=== PATIENT | male | born 1945 | race Caucasian/White ===

== ENCOUNTER 2024-08-07 18:03 | Emergency (ER) | payer MEDICARE, SELFPAY ==
[2024-08-07 18:04] VITALS: BP 133/96; PULSE 125; RESP 18; TEMP 37.1; O2SAT 97; BMI 24.5
--- NOTE | 2024-08-07 18:22 | CT_ITS ---
PROCEDURE: SPINE CERVICAL WITHOUT CONTRAS 08/07/2024 REASON FOR EXAM: FALL TECHNIQUE: Cervical spine CT without contrast. Coronal and Sagittal reconstruction series were provided. One or more dose reduction techniques were used (e.g., Automated exposure control, adjustment of the mA and/or kV according to patient size, use of iterative reconstruction technique COMPARISON: None FINDINGS: Alignment: Straightening of the cervical lordosis. Atlantoaxial interval is maintained. Vertebrae: Vertebral body heights are maintained. Multilevel loss of disc space throughout the cervical spine. No acute fracture or traumatic subluxation. Multilevel degenerative changes, most prominent at C3-C4 with up to moderate canal stenosis and severe neural foraminal narrowing. Soft Tissues: No focal soft tissue abnormality. Other: Severe emphysema within the imaged lung apices. CT/Spine Cervical without Contras IMPRESSION: No acute fracture or traumatic subluxation. Multilevel degenerative changes most prominent at C3-C4. Reading Location: [facility]
--- NOTE | 2024-08-07 18:22 | CT_ITS ---
PROCEDURE: CHEST WITHOUT CONTRAST 08/07/2024 REASON FOR EXAM: FALL TECHNIQUE: Chest CT without contrast. Coronal and Sagittal reconstruction series were provided. One or more dose reduction techniques were used (e.g., Automated exposure control, adjustment of the mA and/or kV according to patient size, use of iterative reconstruction technique COMPARISON: None FINDINGS: Hardware: Right shoulder arthroplasty. Lymph nodes: No suspicious adenopathy. Heart and Vasculature: No cardiomegaly. Severe coronary artery calcifications. No pericardial effusion. Atherosclerotic calcifications of the thoracic aorta. Thoracic aorta and pulmonary arteries have normal contours; noncontrast technique limits evaluation. Coronary Artery Calcifications: Present Lungs and Airways: Central airways are patent without endobronchial lesions. Moderate upper lobe predominant centrilobular emphysema. 4 mm right upper lobe nodule (series 10, image 20). Otherwise, no suspicious pulmonary nodules. No focal consolidation. No pneumothorax. No pleural effusion. Patchy opacities in the lung base, compatible with atelectasis. Left upper lobe calcified granuloma. Upper Abdomen: Multiple bilateral renal cysts. Small hiatal hernia. Bones: Multiple remote bilateral rib fractures. No acute osseous abnormality. Diffuse osteopenia. CT/Chest without Contrast IMPRESSION: No acute findings in the thorax. Moderate upper lobe centrilobular emphysema. 4 mm indeterminate right upper lobe pulmonary nodule. [facility]
--- NOTE | 2024-08-07 18:22 | RAD_ITS ---
PROCEDURE: LUMBAR SPINE 2 OR 3 VIEWS; PELVIS 1 OR 2 VIEWS 08/07/2024 REASON FOR EXAM: FALLL; FALL TECHNIQUE: 2 view(s) of the lumbar spine COMPARISON: None FINDINGS: Straightening of the lumbar lordosis. Mild remote compression deformities T12- L2 vertebral bodies. Multilevel loss of disc spaces. Pedicles are intact. Osseous architecture is maintained. Moderate- severe multilevel degenerative changes throughout the lumbar spine. No acute fracture or traumatic subluxation. SI joints are unremarkable. No suspicious lytic or blastic lesion. Moderate degenerative changes of the hip joints. Dense atherosclerotic calcification of the abdominal aorta and suggestion of a 5.1 cm aneurysmal dilation infrarenal aorta RAD/Pelvis 1 or 2 Views IMPRESSION: No acute fracture or dislocation. [id number] degenerative changes as described above. 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 Recommend CT of the abdomen and pelvis for further evaluation. Reading Location: [facility]
--- NOTE | 2024-08-07 18:24 | EDS_ITS ---
HPI HPI - Fall History of Present Illness Chief Complaint: Fall Detail of Chief Complaint: Fall Informant: patient Narrative Narrative: Patient presents to the emergency department after a fall that was unwitnessed at memory care unit at [facility]. Patient very poor historian due to history of dementia. He has history of chronic back pain. Complains of some discomfort of pain in his right upper back. Patient not anticoagulated [facility] Medical History (Updated 08/07/24 @ 21:[address] Bert Correa, DO) Barretts esophagus GERD (gastroesophageal reflux disease) Embolism and thrombosis HTN (hypertension) Alzheimer disease Dementia Hyperlipidemia Allergy/AdvReac Type Severity Reaction Status Date / Time bacitracin (From Neosporin Allergy Unknown unknown Verified 08/07/24 18:09 ([id number])) Latex, Natural Rubber Allergy Unknown unknown Verified 08/07/24 18:09 neomycin (From Neosporin Allergy Unknown unknown Verified 08/07/24 18:09 ([id number])) polymyxin B (From Neosporin Allergy Unknown unknown Verified 08/07/24 18:09 ([id number])) sulfamethoxazole (From Allergy Unknown unknown Verified 08/07/24 18:09 Bactrim) trimethoprim (From Bactrim) Allergy Unknown unknown Verified 08/07/24 18:09 Social History Smoking Status: Unknown if ever smoked ROS ROS ED ROS Narrative Difficult to obtain due to mental status however he will answer yes and no questions. Review of Systems ROS Unobtainable: due to mental status and other Constitutional Constitutional ED: Reports lethargy; Denies chills, fever(s), sweats or weight loss Eyes Eyes: Denies blurry vision, change in vision or diplopia ENT ENT ED: Denies rhinorrhea or sore throat Cardiovascular Cardiovascular: Reports racing heartbeat; Denies chest pain or orthopnea Respiratory/Chest Respiratory/Chest: Denies cough, dyspnea, dyspnea on exertion, orthopnea or sputum Gastrointestinal Gastrointestinal: Denies abdominal pain, diarrhea, nausea or vomiting Genitourinary Genitourinary ED: Denies dysuria, hematuria or urinary frequency Musculoskeletal Musculoskeletal: Reports back pain; Denies arthralgias, myalgias or neck pain Integumentary Denies abscess, Abrasions or rash Neurologic Neurologic: Denies headache(s) or weakness Psychiatric Psychiatric: Denies anxiety, depression or suicidal thoughts Endocrine Endocrinology: Denies polydipsia, polyphagia or polyuria Hematologic/Lymphatic Hematologic/Lymphatic: Denies easy bleeding, easy bruising or lymphadenopathy Allergic/Immunologic Allergic/Immunologic ED: Denies mouth swelling, tongue swelling or urticaria EXAM Physical Exam Const Vital Signs: 08/07/24 18:04 08/07/24 20:23 08/07/24 20:26 Temperature 98.8 F Temperature Source Oral Pulse Rate 125 H 100 Respiratory Rate 18 19 H Respiratory Effort Normal Non-Labored Respiratory Depth Normal Respiratory Pattern Normal Blood Pressure 133/96 H 130/92 H Blood Pressure Mean 108 104 Pulse Ox 97 96 Oxygen Delivery Method Room Air Room Air Room Air 08/07/24 21:41 Temperature 98.8 F Temperature Source Pulse Rate 98 Respiratory Rate 16 Respiratory Effort Respiratory Depth Respiratory Pattern Blood Pressure 136/89 H Blood Pressure Mean 104 Pulse Ox 96 Oxygen Delivery Method Positive well nourished and well developed General Appearance ED: well developed and NAD HEENT Reports TM's clear and moist mucous membranes HEENT Narrative: No external evidence of trauma to his head. normocephalic and atraumatic; Negative for trauma or tenderness Tympanic Membrane ED: Yes TM's clear Eyes PERRL and EOMs intact bilaterally General Eye ED: Negative for pale conjunctiva or scleral icterus Neck no lymphadenopathy, supple and no JVD General: Negative for tenderness Chest Wall inspection of chest normal and palpation of chest normal Chest: Negative for tenderness Resp normal respiratory effort and clear to auscultation bilaterally Effort and Inspection: Negative for respiratory distress or pain with movement Auscultation: Negative for rhonchi, wheezes or diminished lung sounds Cardio regular rate, regular rhythm, S1 normal heart sound, S2 normal heart sound and no murmurs Peripheral Pulses: pulses 2+ throughout GI normal to inspection, nondistended, normoactive bowel sounds, soft to palpation, non-tender, non-distended and no masses Back/Spine no CVA tenderness and no thoracic nor lumbar tenderness Back/Spine Narrative: Mild diffuse tenderness over thoracic spine and right posterior ribs. No significant tenderness over the lumbar spine. No ecchymosis or bruising noted. Extremity normal to inspection General Extremety ED: Negative for edema General Extremity: Negative for edema Neuro oriented x3, CN's II-XII intact bilaterally, no sensory deficits noted and gait normal Sensorium / Orientation: awake, alert, oriented to person, oriented to place and oriented to time Motor Exam: strength 5/5 throughout and strength abnormal Psych mental status grossly normal Skin no rashes or lesions noted and no wounds MDM MDM MDM Narrative Medical decision making narrative: Patient presents to the emergency department after an acute fall. Very poor historian given history of dementia. Apparently does have history of some chronic back pain. Patient had a CT scan of the brain without contrast that showed no acute intracranial injury. He had a CT of the cervical spine that showed degenerative changes without acute fracture. Patient had x-rays of the lumbar spine that showed degenerative changes without fracture. Patient also had x-ray of the pelvis which did not show fractures however did show concern for 5.1 cm infrarenal aortic aneurysm and recommended obtaining CT scan of the abdomen pelvis. I did obtain a CT scan of the chest initially that did not show any rib fractures or thoracic vertebral fractures. CT scan of the abdomen pelvis with IV contrast obtained showed a infrarenal aneurysm measuring 4.4 cm. No evidence for dissection or rupture. At this point we [facility] will refer to vascular surgery for follow-up regarding the aneurysm as I do not feel this needs emergent attention. Lab Data Attestation: I reviewed the patient's lab results. Labs: Laboratory Results - last 24 hr 08/07/24 20:20 WBC 9.0 RBC 4.27 L Hgb 13.1 Hct 38.8 L MCV 90.9 MCH 30.7 MCHC 33.8 RDW Std Deviation 44.4 H RDW Coeff of Chary 13.5 Plt Count 222 MPV 8.8 Immature Gran % (Auto) 0.800 Neut % (Auto) 60.2 Lymph % (Auto) 22.4 [place] % (Auto) 10.8 H Eos % (Auto) 5.5 H Baso % (Auto) 0.3 Absolute Neuts (auto) 5.4 Absolute Lymphs (auto) 2.01 Nucleated RBC % 0 Sodium 142 Potassium 4.2 Chloride 109 H Carbon Dioxide 19.7 L Anion Gap 13 BUN 39 H Creatinine 1.75 H Estim Creat Clear Calc 36.45 L Est GFR (MDRD) Non-Af 39 L BUN/Creatinine Ratio 22.3 H Glucose 118 H Calcium 9.4 Radiography Diagnostic Testing: Clinical Impression(s) from Imaging Studies Cervical Spine CT 08/07/24 18:22 IMPRESSION: No acute fracture or traumatic subluxation. Multilevel degenerative changes most prominent at C3-C4. Reading Location: [facility] Chest CT 08/07/24 18:22 IMPRESSION: No acute findings in the thorax. Moderate upper lobe centrilobular emphysema. 4 mm indeterminate right upper lobe pulmonary nodule. Reading Location: [facility] Pelvis X-Ray 08/07/24 18:22 IMPRESSION: No acute fracture or dislocation. Enhkxfcx-rt-bgnhik degenerative changes as described above. 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 Recommend CT of the abdomen and pelvis for further evaluation. Reading Location: [facility] Brain CT 08/07/24 18:30 IMPRESSION: No acute intracranial abnormality. Chronic microvascular ischemia and involutional changes. Reading Location: [facility] Lumbar Spine X-Ray 08/07/24 18:40 IMPRESSION: No acute fracture or dislocation. Izqveyjz-bv-chbobn degenerative changes as described above. 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 Recommend CT of the abdomen and pelvis for further evaluation. Reading Location: [facility] Abdomen/Pelvis CTA 08/07/24 19:55 IMPRESSION: 1. Fusiform aneurysm at the bifurcation, measurements documented above. 2. Diffuse atherosclerotic calcifications involving the visceral arteries and aorta, mild in the visceral arteries and moderate in the aorta. 3. Bilateral renal cysts. 4. Bilateral nonobstructing nephrolithiasis. 5. Diverticulosis without signs of diverticulitis 6. Fat containing left inguinal hernia. 7. Centrilobular emphysematous changes. 8. Coronary artery calcifications. Reading [facility] x-ray of the pelvis obtained interpreted by myself as no evidence of fractures and noted degenerative changes. Radiology in agreement with a noted concern for 5.1 cm aneurysmal dilatation infrarenal aorta and recommended CT of the abdomen and pelvis for further evaluation. Three-view x-rays of the lumbar spine obtained interpreted by myself as degenerative changes without evidence of fracture. Radiology in agreement but again noted aneurysmal dilatation of aorta recommended CT imaging. Discharge Plan Triage Chief Complaint: Fall ED Provider: Bert Correa Dx/Rx/DC Orders Clinical Impression: Fall, Dementia, AAA (abdominal aortic aneurysm) Instructions: Delirium and Dementia, ED Fall Prevention, ED AAA Stable Primary Care Provider: Ladarius Painting Referrals: Trav Dacosta MD [Med Staff - Active Staff] - 5-7 Days Ladarius Painting DO [Primary Care Provider] - 3-5 Days Print Language: Maltese Disposition Disposition: Home, Self Care
--- NOTE | 2024-08-07 18:30 | CT_ITS ---
PROCEDURE: BRAIN/HEAD WITHOUT CONTRAST 08/07/2024 REASON FOR EXAM: FALL, DEMENTIA TECHNIQUE: Head CT without intravenous contrast. Coronal and Sagittal reconstruction series were provided. One or more dose reduction techniques were used (e.g., Automated exposure control, adjustment of the mA and/or kV according to patient size, use of iterative reconstruction technique. COMPARISON: None FINDINGS: No acute intracranial hemorrhage, mass, mass effect, midline shift or pathologic extra-axial fluid collection. Mild parenchymal atrophy with commensurate increase in CSF containing spaces. Patchy white matter hypodensities, patient demographics favor chronic microvascular ischemic changes. Paranasal sinuses and mastoid air cells are clear. The calvarium is grossly intact. CT/Brain/Head without Contrast IMPRESSION: No acute intracranial abnormality. Chronic microvascular ischemia and involutional changes. [facility]
--- NOTE | 2024-08-07 18:40 | RAD_ITS ---
PROCEDURE: LUMBAR SPINE 2 OR 3 VIEWS; PELVIS 1 OR 2 VIEWS 08/07/2024 REASON FOR EXAM: FALLL; FALL TECHNIQUE: 2 view(s) of the lumbar spine COMPARISON: None FINDINGS: Straightening of the lumbar lordosis. Mild remote compression deformities T12- L2 vertebral bodies. Multilevel loss of disc spaces. Pedicles are intact. Osseous architecture is maintained. Moderate- severe multilevel degenerative changes throughout the lumbar spine. No acute fracture or traumatic subluxation. SI joints are unremarkable. No suspicious lytic or blastic lesion. Moderate degenerative changes of the hip joints. Dense atherosclerotic calcification of the abdominal aorta and suggestion of a 5.1 cm aneurysmal dilation infrarenal aorta RAD/Lumbar Spine 2 or 3 Views IMPRESSION: No acute fracture or dislocation. Zckhscmg-[id number] degenerative changes as described above. 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 Recommend CT of the abdomen and pelvis for further evaluation. Reading Location: [facility]
--- NOTE | 2024-08-07 19:55 | CT_ITS ---
PROCEDURE: CTA ABDOMEN/PELVIS WITH IV CONTRAST 08/07/2024 REASON FOR EXAM: AAA AND BACK PAIN TECHNIQUE: CTA imaging of the abdomen and pelvis with intravenous contrast. Contiguous axial scans of 2.5 mm slice thicknesses. Sagittal and coronal reconstruction images were obtained. One or more dose reduction techniques were used (e.g., automated exposure control, adjustment of mA and/or kv according to patient size, use of iterative reconstruction technique). CONTRAST: ISOVUE 370 VOLUME: 100 ML RADIATION DOSE SUMMARY: DLP: 1186.03 MGycm COMPARISON: NO RELEVANT PRIOR FINDINGS: Aorta: [id number] atherosclerotic calcific disease. Fusiform aneurysmal dilatation of the aorta at the bifurcation measuring 4.4 x 3.9 cm. Eccentric thrombus is noted. Functional lumen size measures 3.1 x 2.4 cm. No evidence of dissection. Iliac Arteries: No aneurysms. Atherosclerotic calcifications. Mild tortuosity. Celiac: No critical stenoses. Mild atherosclerotic calcifications. SMA: No critical stenoses. Mild atherosclerotic calcifications. LINA : Not visualized. Right Renal: No critical stenoses. Mild atheromatous calcification. Left Renal: No critical stenosis. Mild atheromatous calcific disease. Other Findings: Bilateral renal cysts, largest in the superior pole of the left kidney measuring 3.5 x 3.2 cm. Bilateral nonobstructing nephrolithiasis. Colonic diverticulosis, descending and sigmoid colon without signs of diverticulitis. Fat containing left inguinal hernia. Multilevel spondylosis. Centrilobular emphysematous changes. Coronary artery calcifications. CT/CTA Abd/Pelvis W/WO Contrast IMPRESSION: 1. Fusiform aneurysm at the bifurcation, measurements documented above. 2. Diffuse atherosclerotic calcifications involving the visceral arteries and aorta, mild in the visceral arteries and moderate in the aorta. 3. Bilateral renal cysts. 4. Bilateral nonobstructing nephrolithiasis. 5. Diverticulosis without signs of diverticulitis 6. Fat containing left inguinal hernia. 7. Centrilobular emphysematous changes. 8. Coronary artery calcifications. Reading Location: [facility]
[2024-08-07 20:23] VITALS: BP 130/92; PULSE 100; RESP 19; O2SAT 96
[2024-08-07 20:32] LABS: Absolute Lymphocyte Count 2.01 X10^3/uL (0.83-4.51); Absolute Neutrophil Count 5.4 X10^3/uL (2.0-7.7); Basophil# 0.03 X10^3/uL; Basophil% 0.3 % (0-1); Eosinophil# 0.49 X10^3/uL; Eosinophils% 5.5 % (0-5); Hematocrit 38.8 % (40-54); Hemoglobin 13.1 g/dL (13.0-16.5); Lymphocyte # 2.01 X10^3/ul (0.83-4.51); Lymphocyte % 22.4 % (19-41); Mean Corp Hgb Conc 33.8 g/dL (32-36); Mean Corpuscular Hgb 30.7 pg (27.0-32.0); Mean Corpuscular Volume 90.9 fL (80-94); Mean Platelet Vol. 8.8 fl (6.2-12.0); Monocyte# 0.97 X10^3/uL; Monocyte% 10.8 % (0-10); NRBC Flagged by Analyzer 0 % (0-5); Neutrophil # 5.42 X10^3/uL (2.7-7.7); Neutrophil % 60.2 % (47-70); Platelet Count 222 K/mm3 (150-450); RBC Distribution Width CV 13.5 % (11.6-14.6); RBC Distribution Width SD 44.4 fl (35.1-43.9); Red Blood Count 4.27 M/mm3 (4.6-6.2)
[2024-08-07 21:00] LABS: Anion Gap 13 (5-15); BUN 39 mg/dL (4-19); BUN/Creat Ratio 22.3 RATIO (10-20); Calcium,Total 9.4 mg/dL (7.6-11.0); Carbon Dioxide 19.7 mmol/L (21.0-32.0); Chloride 109 mmol/L (98-108); Creatinine, Serum 1.75 mg/dL (0.70-1.20); EST Glomerular Filtration Rate 39 (>60); Estimated Creatinine Clearance 36.45 ml/min (50-250); Glucose 118 mg/dL (70-99); Potassium 4.2 mmol/L (3.3-5.1); Sodium Level 142 mmol/L (133-145)
--- NOTE | 2024-08-07 21:25 | ED.RN ---
spoke with Zoe at [facility]osp[facility] to inform of pt's planned discharge to [facility].
[2024-08-07 21:41] VITALS: BP 136/89; PULSE 98; RESP 16; TEMP 37.1; O2SAT 96
--- NOTE | 2024-08-07 21:43 | ED.RN ---
called nurse at [facility] to inform of pt's return
--- NOTE | 2024-08-07 21:49 | ED.RN ---
Call to [facility] to arrange transport back to [facility]. 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
--- NOTE | 2024-08-07 22:06 | ED.RN ---
Uziel Wilkes updated on findings and plan to discharge pt back to [facility]. All questions answered, she will update pt's .
[2024-08-07 23:54] VITALS: PULSE 111; RESP 19; O2SAT 96
[2024-08-08 02:04] VITALS: BP 125/89; PULSE 78; RESP 17; O2SAT 95
[2024-08-08 04:00] VITALS: PULSE 81; RESP 16; O2SAT 95
== END 2024-08-08 04:53 | disposition home or self-care (01) ==
PROVIDERS: Emergency Provider Emergency Medicine; Referring Provider Emergency Medicine; Visit Provider Emergency Medicine
DX: I71.40 Abdominal aortic aneurysm, without rupture, unspecified (principal); F02.80 Dementia in other diseases classified elsewhere, unspecified severity, without behavioral disturbance, psychotic disturbance, mood disturbance, and anxiety; G30.9 Alzheimer's disease, unspecified; W19.XXXA Unspecified fall, initial encounter
CPT/HCPCS: 70450; 71250; 72100; 72125; 72170; 74174; 80048; 85025; 99285; Q9967; A4216

== ENCOUNTER 2024-10-06 17:19 | Emergency (ER) | payer MEDICARE, SELFPAY ==
[2024-10-06] VITALS (15 sets, daily range): BP systolic 79–151; BP diastolic 55–78; PULSE 100–147; RESP 15–29; TEMP 36.1–36.9; O2SAT 95–100; BMI 22.9
--- NOTE | 2024-10-06 17:23 | EKG12_ITS ---
Test Reason : POST CHOKING Blood Pressure : */* mmHG Vent. Rate : 125 BPM Atrial Rate : * BPM P-R Int : * ms QRS Dur : 84 ms QT Int : 334 ms P-R-T Axes : * 65 267 degrees QTcB Int : 482 ms Atrial fibrillation with rapid ventricular response ST & T wave abnormality, consider inferolateral ischemia Abnormal ECG Confirmed by STEVE WILL, MARTHA ([id number]), production editor MINDA GARCIA ([id number]) on 10/08/2024 8:19:41 AM Referred By: [facility] Confirmed By: MARTHA WILSON MD
--- NOTE | 2024-10-06 17:23 | EKG12_ITS ---
Test Reason : POST CHOKING Blood Pressure : */* mmHG Vent. Rate : 125 BPM Atrial Rate : * BPM P-R Int : * ms QRS Dur : 84 ms QT Int : 334 ms P-R-T Axes : * 65 267 degrees QTcB Int : 482 ms Atrial fibrillation with rapid ventricular response ST & T wave abnormality, consider inferolateral ischemia Abnormal ECG Confirmed by STEVE WILL, MARTHA ([id number]), medical editor MINDA GARCIA ([id number]) on 10/08/2024 8:19:41 AM Referred By: [facility] Confirmed By: MARTHA WILSON MD
--- NOTE | 2024-10-06 17:28 | ED.RN ---
dr junior at bedside prepareing for bedside bronch
--- NOTE | 2024-10-06 17:28 | ED.RN ---
dr junior at bedside prepareing for bedside bronch
--- NOTE | 2024-10-06 17:33 | ED.RN ---
dr. junior removed 2 separate pieces of steak from airway
--- NOTE | 2024-10-06 17:33 | ED.RN ---
dr. junior removed 2 separate pieces of steak from airway
[2024-10-06 17:35] LABS: Hematocrit 38.8 % (40-54); Hemoglobin 12.3 g/dL (13.0-16.5); Immature Granulocytes Count 0.050 X10^3/uL (0.0-0.0); Mean Corp Hgb Conc 31.7 g/dL (32-36); Mean Corpuscular Volume 97.2 fL (80-94); Mean Platelet Vol. 8.8 fl (6.2-12.0); NRBC Flagged by Analyzer 0 % (0-5); Platelet Count 268 K/mm3 (150-450); RBC Distribution Width CV 14.3 % (11.6-14.6); RBC Distribution Width SD 51.6 fl (35.1-43.9); Red Blood Count 3.99 M/mm3 (4.6-6.2); White Blood Count 13.9 K/mm3 (4.4-11.0)
--- NOTE | 2024-10-06 17:40 | EDS_ITS ---
HPI History of Present Illness Chief Complaint: Foreign Body Detail of Chief Complaint: Respiratory distress due to food foreign body airway Informant: EMS Onset/Context/Timing Onset: Today and Hours Context: Sudden Onset Timing: Continuous Quality: Patient apparently choked on steak Location: Upper airway Mechanism/Context: Yes other Current Severity: Moderate Maximum Severity: Severe Worsened by: Obstruction airway due to food bolus, steak Relieved by: Partially relieved with Heimlich Associated Symptoms Length of loss of consciousness: Unable to determine Narrative Narrative: Patient is an elderly male. He is presently nonverbal. He has history of dementia. Squad states they were called. He was 94% on nonrebreather. He was cyanotic. Heimlich was performed with piece of steak coming up. When he arrived he remained unresponsive. He has stridor noted on inspiration. He is in respiratory distress. He is saturating 95% on nonrebreather mask. Patient has diminished breath sounds bilaterally. No other history is obtainable Prior similar symptoms: No Recent Illness/Hospitalization: No [facility] Medical History (Updated 10/06/24 @ 18:[address] Eric Junior MD) Barretts esophagus GERD (gastroesophageal reflux disease) Embolism and thrombosis HTN (hypertension) Alzheimer disease Dementia Hyperlipidemia Allergy/AdvReac Type Severity Reaction Status Date / Time bacitracin (From Neosporin Allergy Unknown unknown Verified 08/07/24 18:09 ([id number])) Latex, Natural Rubber Allergy Unknown unknown Verified 08/07/24 18:09 neomycin (From Neosporin Allergy Unknown unknown Verified 08/07/24 18:09 ([id number])) polymyxin B (From Neosporin Allergy Unknown unknown Verified 08/07/24 18:09 ([id number])) sulfamethoxazole (From Allergy Unknown unknown Verified 08/07/24 18:09 Bactrim) trimethoprim (From Bactrim) Allergy Unknown unknown Verified 08/07/24 18:09 Social History Smoking Status: Unknown if ever smoked ROS ROS ED Review of Systems ROS Unobtainable: due to mental status EXAM Physical Exam Const Vital Signs: 10/06/24 17:20 10/06/24 17:23 10/06/24 17:28 Temperature 98.4 F Temperature Source Temporal Pulse Rate 147 H 124 H Respiratory Rate 29 H Respiratory Effort Short of Breath Respiratory Depth Blood Pressure 151/74 H 81/55 L Blood Pressure Mean 99 63 Pulse Ox 95 97 Oxygen Delivery Method Non-Rebreather Nasal Cannula Oxygen Flow Rate (L/min) 15 10 10/06/24 17:31 10/06/24 17:33 10/06/24 17:35 Temperature Temperature Source Pulse Rate 127 H 129 H 131 H Respiratory Rate 25 H Respiratory Effort Respiratory Depth Blood Pressure 79/60 L 91/63 Blood Pressure Mean 66 72 Pulse Ox 96 96 Oxygen Delivery Method Nasal Cannula Oxygen Flow Rate (L/min) 10 10/06/24 17:40 10/06/24 17:45 10/06/24 17:49 Temperature Temperature Source Pulse Rate 125 H 123 H Respiratory Rate 23 H 24 H 22 H Respiratory Effort Normal Non-Labored Respiratory Depth Normal Blood Pressure 100/61 104/78 Blood Pressure Mean 74 86 Pulse Ox 98 97 97 Oxygen Delivery Method Non-Rebreather Nasal Cannula Nasal Cannula Oxygen Flow Rate (L/min) 15 10 10/06/24 18:03 10/06/24 18:22 10/06/24 19:52 Temperature 97.5 F L 97.0 F L Temperature Source Temporal Temporal Pulse Rate 121 H 126 H 101 H Respiratory Rate 24 H 19 H 17 Respiratory Effort Respiratory Depth Blood Pressure 102/56 L 93/66 92/58 L Blood Pressure Mean 71 75 69 Pulse Ox 98 95 99 Oxygen Delivery Method Nasal Cannula Nasal Cannula Nasal Cannula Oxygen Flow Rate (L/min) 5 5 Vital signs noted. He is presently on 5 L by nasal cannula. Positive well nourished and well developed Constitutional Narrative: Patient in obvious respiratory distress with stridor, use of accessory muscles and retractions. General Appearance ED: well developed; Negative for NAD or pallor HEENT normocephalic and atraumatic; Negative for cyanosis of lips/distal nose Eyes PERRL and EOMs intact bilaterally General Eye ED: Negative for pale conjunctiva or scleral icterus Neck full ROM, no lymphadenopathy, supple and no JVD Neck Narrative: Stridor as previously documented. Resp Resp Narrative: Use of accessory muscles and retractions. Audible abnormal respiratory sounds noted as well. Cardio no murmurs Cardio Narrative: Difficult to hear heart tones due to abnormal respiratory sounds. Rate: tachycardic Rhythm: abnormal rhythm irregularly irregular GI non-tender, non-distended and no masses Palpation: soft Back/Spine no CVA tenderness Extremity Extremity Narrative: There is no clubbing or cyanosis. Capillary refill is normal. Neuro No oriented x3 Neuro Narrative: There is no verbal response to tactile or verbal stimulus. Psych Psych Narrative: Unable to assess Skin General Skin Exam: Negative for jaundice or pallor Lesions: no lesions Rashes: no rashes MDM MDM MDM Narrative Medical decision making narrative: Patient respiratory distress. Suspect he has retained food in his upper airway. Patient was placed on high percent nonrebreather. Patient received 20 mg of etomidate. Using glide scope and Tiffanie forceps 3 large pieces of unchewed steak were removed. Patient then underwent direct laryngoscopy with glide scope and fiberoptic bronchoscopy. There was no obvious foreign body noted. Did not visualize the entire trachea due to secretions. Suspect he aspirated. To perform initial procedure 20 mg vomiting it was administered. Additional 20 mg of etomidate was administered to perform fiberoptic bronchoscopy. Lab Data Attestation: I reviewed the patient's lab results. Lab results narrative: White count is elevated 13.9 thousand. There is no shift. Electrolyte panel Veals a high anion gap acidosis. ABG reveals a metabolic acidosis with increased AA gradient. BUN and creatinine are elevated at 35 and 1.74. Estimated GFR is 39. Lactate is elevated 4.2. Labs: Laboratory Results - last 24 hr 10/06/24 10/06/24 17:23 17:50 WBC 13.9 H RBC 3.99 L Hgb 12.3 L Hct 38.8 L MCV 97.2 H MCH 30.8 MCHC 31.7 L RDW Std Deviation 51.6 H RDW Coeff of Chary 14.3 Plt Count 268 MPV 8.8 Immature Gran % (Auto) 0.400 Neut % (Auto) 48.1 Lymph % (Auto) 34.4 [place] % (Auto) 10.7 H Eos % (Auto) 6.1 H Baso % (Auto) 0.3 Absolute Neuts (auto) 6.7 Absolute Lymphs (auto) 4.77 H Nucleated RBC % 0 Sodium 142 Potassium 3.7 Chloride 107 Carbon Dioxide 17.2 L Anion Gap 17 H BUN 35 H Creatinine 1.74 H Estim Creat Clear Calc 36.32 L Est GFR (MDRD) Non-Af 39 L BUN/Creatinine Ratio 19.9 Glucose 198 H Lactic Acid 4.2 H* Calcium 9.4 Troponin T High Sens 35 H ABG Data Attestation: I personally reviewed and interpreted this ABG as follows: Interpretation: Patient is acidotic with a pH of 7.17. Bicarb is 18.2. CO2 is slightly elevated at 50. pO2 was 229. This was on a nonrebreather mask. ABG is consistent with a metabolic acidosis and mild respiratory acidosis with an increased AA gradient and mild CO2 retention. ABG results: ABG 10/06/24 17:50 Specimen Type ART Sample Site R Radial pH 7.17 L* Bicarbonate Actual 18.2 L Total CO2 20 Base Excess -10 L O2 Saturation 100 H O2 % 15.0 ABG pCO2 50.0 H ABG pO2 229 H Devendra Test Positive O2 Delivery Device HFNC Vent Mode Not entered Crit Call To/Read Back Yes Blood Gas Notified Whom junior Blood Gas Notified Time 17:52:24 Radiography Chest X-Ray - ED: 1 View and Read by ED Physician (Suboptimal film due to rotation and body position. Cardiac silhouette size appears normal. Hilum appears normal. Osseous structures are unremarkable.) Diagnostic Testing: Clinical Impression(s) from Imaging Studies Chest X-Ray 10/06/24 17:45 IMPRESSION: No acute process in the chest. No noticeable change from prior. Reading [facility] Rhythm Strip Rhythm Strip: A-fib Rate: 134 EKG Initial EKG: Attestation: I personally reviewed and interpreted this EKG as follows: Interpretation: Atrial Fibrillation (Rate is 125. There is ST-T wave changes noted in the inferolateral leads. Will need to obtain old EKG for comparison. QRS duration 84 ms. QT duration 234 ms. [place] is normal.) Treatment and Re-Evaluation Narrative: Nurses informing that he is DNR comfort care. We were able to locate order sheet that was signed by Dr. Swain. He is DNR comfort care only. In light of this if [facility] of treating him with oxygen will send back to nursing facility on oxygen and Augmentin for presumed aspiration. Nurse informing that hospice like care is sending a nursing to evaluate him. Patient is DNR comfort care only. Hospice from [facility] care nurse has evaluated patient. She spoke to family. He will be an inpatient hospice patient before returning to the nursing facility. Critical Care Time Critical Care Time: Yes Critical care time (excluding procedures): 30-74 minutes (32), Including time spent: (History, physical, documentation, independent rotation laboratory results.), Discussing w/Consultants, Arranging Admission or Transfer and Performing Direct Patient Care at Bedside (Time did not include time allotted for sedation, direct laryngoscopy with removal of 3 pieces of steak and bronchoscopy.) Discharge Plan Triage Chief Complaint: Foreign Body ED Provider: Eric Junior Dx/Rx/DC Orders Clinical Impression: Acute respiratory distress, Aspiration of food, Acidosis, lactic, Acute on chronic respiratory failure with hypoxia and hypercapnia, Atrial fibrillation with RVR, Leukocytosis, Anemia, macrocytic, CKD stage 3 secondary to diabetes, Acute hyperglycemia Primary Care Provider: Ladarius Painting Referrals: Ladarius Painting DO [Primary Care Provider] - Print Language: Swiss Disposition Disposition: Hospice in Home
--- NOTE | 2024-10-06 17:40 | EDS_ITS ---
HPI History of Present Illness Chief Complaint: Foreign Body Detail of Chief Complaint: Respiratory distress due to food foreign body airway Informant: EMS Onset/Context/Timing Onset: Today and Hours Context: Sudden Onset Timing: Continuous Quality: Patient apparently choked on steak Location: Upper airway Mechanism/Context: Yes other Current Severity: Moderate Maximum Severity: Severe Worsened by: Obstruction airway due to food bolus, steak Relieved by: Partially relieved with Heimlich Associated Symptoms Length of loss of consciousness: Unable to determine Narrative Narrative: Patient is an elderly male. He is presently nonverbal. He has history of dementia. Squad states they were called. He was 94% on nonrebreather. He was cyanotic. Heimlich was performed with piece of steak coming up. When he arrived he remained unresponsive. He has stridor noted on inspiration. He is in respiratory distress. He is saturating 95% on nonrebreather mask. Patient has diminished breath sounds bilaterally. No other history is obtainable Prior similar symptoms: No Recent Illness/Hospitalization: No [facility] Medical History (Updated 10/06/24 @ 18:[address] Eric Junior MD) Barretts esophagus GERD (gastroesophageal reflux disease) Embolism and thrombosis HTN (hypertension) Alzheimer disease Dementia Hyperlipidemia Allergy/AdvReac Type Severity Reaction Status Date / Time bacitracin (From Neosporin Allergy Unknown unknown Verified 08/07/24 18:09 ([id number])) Latex, Natural Rubber Allergy Unknown unknown Verified 08/07/24 18:09 neomycin (From Neosporin Allergy Unknown unknown Verified 08/07/24 18:09 ([id number])) polymyxin B (From Neosporin Allergy Unknown unknown Verified 08/07/24 18:09 ([id number])) sulfamethoxazole (From Allergy Unknown unknown Verified 08/07/24 18:09 Bactrim) trimethoprim (From Bactrim) Allergy Unknown unknown Verified 08/07/24 18:09 Social History Smoking Status: Unknown if ever smoked ROS ROS ED Review of Systems ROS Unobtainable: due to mental status EXAM Physical Exam Const Vital Signs: 10/06/24 17:20 10/06/24 17:23 10/06/24 17:28 Temperature 98.4 F Temperature Source Temporal Pulse Rate 147 H 124 H Respiratory Rate 29 H Respiratory Effort Short of Breath Respiratory Depth Blood Pressure 151/74 H 81/55 L Blood Pressure Mean 99 63 Pulse Ox 95 97 Oxygen Delivery Method Non-Rebreather Nasal Cannula Oxygen Flow Rate (L/min) 15 10 10/06/24 17:31 10/06/24 17:33 10/06/24 17:35 Temperature Temperature Source Pulse Rate 127 H 129 H 131 H Respiratory Rate 25 H Respiratory Effort Respiratory Depth Blood Pressure 79/60 L 91/63 Blood Pressure Mean 66 72 Pulse Ox 96 96 Oxygen Delivery Method Nasal Cannula Oxygen Flow Rate (L/min) 10 10/06/24 17:40 10/06/24 17:45 10/06/24 17:49 Temperature Temperature Source Pulse Rate 125 H 123 H Respiratory Rate 23 H 24 H 22 H Respiratory Effort Normal Non-Labored Respiratory Depth Normal Blood Pressure 100/61 104/78 Blood Pressure Mean 74 86 Pulse Ox 98 97 97 Oxygen Delivery Method Non-Rebreather Nasal Cannula Nasal Cannula Oxygen Flow Rate (L/min) 15 10 10/06/24 18:03 10/06/24 18:22 10/06/24 19:52 Temperature 97.5 F L 97.0 F L Temperature Source Temporal Temporal Pulse Rate 121 H 126 H 101 H Respiratory Rate 24 H 19 H 17 Respiratory Effort Respiratory Depth Blood Pressure 102/56 L 93/66 92/58 L Blood Pressure Mean 71 75 69 Pulse Ox 98 95 99 Oxygen Delivery Method Nasal Cannula Nasal Cannula Nasal Cannula Oxygen Flow Rate (L/min) 5 5 Vital signs noted. He is presently on 5 L by nasal cannula. Positive well nourished and well developed Constitutional Narrative: Patient in obvious respiratory distress with stridor, use of accessory muscles and retractions. General Appearance ED: well developed; Negative for NAD or pallor HEENT normocephalic and atraumatic; Negative for cyanosis of lips/distal nose Eyes PERRL and EOMs intact bilaterally General Eye ED: Negative for pale conjunctiva or scleral icterus Neck full ROM, no lymphadenopathy, supple and no JVD Neck Narrative: Stridor as previously documented. Resp Resp Narrative: Use of accessory muscles and retractions. Audible abnormal respiratory sounds noted as well. Cardio no murmurs Cardio Narrative: Difficult to hear heart tones due to abnormal respiratory sounds. Rate: tachycardic Rhythm: abnormal rhythm irregularly irregular GI non-tender, non-distended and no masses Palpation: soft Back/Spine no CVA tenderness Extremity Extremity Narrative: There is no clubbing or cyanosis. Capillary refill is normal. Neuro No oriented x3 Neuro Narrative: There is no verbal response to tactile or verbal stimulus. Psych Psych Narrative: Unable to assess Skin General Skin Exam: Negative for jaundice or pallor Lesions: no lesions Rashes: no rashes MDM MDM MDM Narrative Medical decision making narrative: Patient respiratory distress. Suspect he has retained food in his upper airway. Patient was placed on high percent nonrebreather. Patient received 20 mg of etomidate. Using glide scope and Tiffanie forceps 3 large pieces of unchewed steak were removed. Patient then underwent direct laryngoscopy with glide scope and fiberoptic bronchoscopy. There was no obvious foreign body noted. Did not visualize the entire trachea due to secretions. Suspect he aspirated. To perform initial procedure 20 mg vomiting it was administered. Additional 20 mg of etomidate was administered to perform fiberoptic bronchoscopy. Lab Data Attestation: I reviewed the patient's lab results. Lab results narrative: White count is elevated 13.9 thousand. There is no shift. Electrolyte panel Veals a high anion gap acidosis. ABG reveals a metabolic acidosis with increased AA gradient. BUN and creatinine are elevated at 35 and 1.74. Estimated GFR is 39. Lactate is elevated 4.2. Labs: Laboratory Results - last 24 hr 10/06/24 10/06/24 17:23 17:50 WBC 13.9 H RBC 3.99 L Hgb 12.3 L Hct 38.8 L MCV 97.2 H MCH 30.8 MCHC 31.7 L RDW Std Deviation 51.6 H RDW Coeff of Chary 14.3 Plt Count 268 MPV 8.8 Immature Gran % (Auto) 0.400 Neut % (Auto) 48.1 Lymph % (Auto) 34.4 [place] % (Auto) 10.7 H Eos % (Auto) 6.1 H Baso % (Auto) 0.3 Absolute Neuts (auto) 6.7 Absolute Lymphs (auto) 4.77 H Nucleated RBC % 0 Sodium 142 Potassium 3.7 Chloride 107 Carbon Dioxide 17.2 L Anion Gap 17 H BUN 35 H Creatinine 1.74 H Estim Creat Clear Calc 36.32 L Est GFR (MDRD) Non-Af 39 L BUN/Creatinine Ratio 19.9 Glucose 198 H Lactic Acid 4.2 H* Calcium 9.4 Troponin T High Sens 35 H ABG Data Attestation: I personally reviewed and interpreted this ABG as follows: Interpretation: Patient is acidotic with a pH of 7.17. Bicarb is 18.2. CO2 is slightly elevated at 50. pO2 was 229. This was on a nonrebreather mask. ABG is consistent with a metabolic acidosis and mild respiratory acidosis with an increased AA gradient and mild CO2 retention. ABG results: ABG 10/06/24 17:50 Specimen Type ART Sample Site R Radial pH 7.17 L* Bicarbonate Actual 18.2 L Total CO2 20 Base Excess -10 L O2 Saturation 100 H O2 % 15.0 ABG pCO2 50.0 H ABG pO2 229 H Devendra Test Positive O2 Delivery Device HFNC Vent Mode Not entered Crit Call To/Read Back Yes Blood Gas Notified Whom junior Blood Gas Notified Time 17:52:24 Radiography Chest X-Ray - ED: 1 View and Read by ED Physician (Suboptimal film due to rotation and body position. Cardiac silhouette size appears normal. Hilum appears normal. Osseous structures are unremarkable.) Diagnostic Testing: Clinical Impression(s) from Imaging Studies Chest X-Ray 10/06/24 17:45 IMPRESSION: No acute process in the chest. No noticeable change from prior. Reading [facility] Rhythm Strip Rhythm Strip: A-fib Rate: 134 EKG Initial EKG: Attestation: I personally reviewed and interpreted this EKG as follows: Interpretation: Atrial Fibrillation (Rate is 125. There is ST-T wave changes noted in the inferolateral leads. Will need to obtain old EKG for comparison. QRS duration 84 ms. QT duration 234 ms. [place] is normal.) Treatment and Re-Evaluation Narrative: Nurses informing that he is DNR comfort care. We were able to locate order sheet that was signed by Dr. Swain. He is DNR comfort care only. In light of this if long term was capable of treating him with oxygen will send back to nursing facility on oxygen and Augmentin for presumed aspiration. Nurse informing that hospice like care is sending a nursing to evaluate him. Patient is DNR comfort care only. Hospice from [facility] care nurse has evaluated patient. She spoke to family. He will be an inpatient hospice patient before returning to the nursing facility. Critical Care Time Critical Care Time: Yes Critical care time (excluding procedures): 30-74 minutes (32), Including time spent: (History, physical, documentation, independent rotation laboratory results.), Discussing w/Consultants, Arranging Admission or Transfer and Performing Direct Patient Care at Bedside (Time did not include time allotted for sedation, direct laryngoscopy with removal of 3 pieces of steak and bronchoscopy.) Discharge Plan Triage Chief Complaint: Foreign Body ED Provider: Eric Junior Dx/Rx/DC Orders Clinical Impression: Acute respiratory distress, Aspiration of food, Acidosis, lactic, Acute on chronic respiratory failure with hypoxia and hypercapnia, Atrial fibrillation with RVR, Leukocytosis, Anemia, macrocytic, CKD stage 3 secondary to diabetes, Acute hyperglycemia Primary Care Provider: Ladarius Painting Referrals: Ladarius Painting DO [Primary Care Provider] - Print Language: [place] Disposition Disposition: Hospice in Home
--- NOTE | 2024-10-06 17:45 | RAD_ITS ---
PROCEDURE: CHEST 1 VIEW (PORTABLE) 10/06/2024 REASON FOR EXAM: RESPIRATORY DISTRESS CT chest scanogram TECHNIQUE: Frontal view of the chest. COMPARISON: Chest CT scanogram of August 07, 2024 FINDINGS: Hardware: No chest hardware. EKG lead wires. 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 Heart: Normal size. Lungs: Grossly clear. Bones: No other bony issues Other: RAD/Chest 1 View (Portable) IMPRESSION: No acute process in the chest. No noticeable change from prior. Reading Location: [facility]
--- NOTE | 2024-10-06 17:45 | RAD_ITS ---
PROCEDURE: CHEST 1 VIEW (PORTABLE) 10/06/2024 REASON FOR EXAM: RESPIRATORY DISTRESS CT chest scanogram TECHNIQUE: Frontal view of the chest. COMPARISON: Chest CT scanogram of August 07, 2024 FINDINGS: Hardware: No chest hardware. EKG lead wires. 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 Heart: Normal size. Lungs: Grossly clear. Bones: No other bony issues Other: RAD/Chest 1 View (Portable) IMPRESSION: No acute process in the chest. No noticeable change from prior. Reading Location: [facility]
[2024-10-06 17:54] LABS: Allen Test Positive; Base Excess -10 mmol/L (-2 to +2); FI02 15.0; PO2 229 mmHG (75-100); SITE R Radial; SO2 100 % (95-99); Time Given 17:52:24
--- OUTSIDE RECORDS SUMMARY | 2024-10-06 18:15 | XMS RPT_ITS | CCD ---
Author Organization [facility] Care Team Providers Care Caving Guide Name Role Phone Dr. Ladarius Painting DO Primary Care Provider [phone] Dr. Bert Correa DO Referring Provider Dr. Bert Correa DO Emergency Provider [phone] Bert Correa Referring Unavailable Bert Correa Attending Unavailable Ladarius Painting Primary Care Unavailable Allergies Allergy Classification Reported Allergen(s) Allergy Type Date of Onset Reaction(s) Facility (1 source) Bacitracin Drug Allergy 5 [facility] Comment on above: pt has dementia (1 source) natural latex rubber Allergy to substance 5 [facility] Comment on above: pt has dementia (1 source) Neomycin Drug Allergy 5 [facility] Comment on above: pt has dementia (1 source) Polymyxin B Drug Allergy 5 [facility] Comment on above: pt has dementia (1 source) Sulfamethoxazole Drug Allergy 5 [facility] Comment on above: pt has dementia (1 source) Trimethoprim Drug Allergy 5 [facility] Comment on above: pt has dementia (1 source) Bacitracin Drug Allergy 5 [facility] (1 source) natural latex rubber Drug allergy (disorder) 5 [facility] (1 source) Neomycin Drug Allergy 5 [facility] (1 source) Sulfamethoxazole Drug Allergy 5 [facility] (1 source) Trimethoprim Drug Allergy 5 [facility] (1 source) polymyxin B Drug allergy (disorder) 5 [facility] Problems Problem Classification Problem Date Documented Da te Episodic/Chronic Aortic; peripheral; and visceral artery aneurysms (1 source) Abdominal aortic aneurysm; Translations: [Abdominal aortic aneurysm (AAA)] 08-07-2024 Chronic Delirium, dementia, and amnestic and other cognitive disorders (1 source) Dementia; Translations: [Unspecified dementia without behavioral disturbance] 08-07-2024 Chronic E Codes: Fall (1 source) Fall; Translations: [Unspecified fall, initial encounter] 08-07-2024 Episodic Spondylosis; intervertebral disc disorders; other back problems (1 source) Dorsalgia, unspecified; Translations: [Dorsalgia, unspecified] Onset: 08-14-2024 Episodic Results Test Name Value Interpretation Reference Range Facility Absolute lymphocyte countOrd ered By: [facility] on 08-07-2024 Lymphocytes Auto (Unsp spec) [#/Vol] 2.01 10*3/uL 0.83-4.51 [facility] Absolute neutrophil countOrd ered By: [facility] on 08-07-2024 Neutrophils (Bld) [#/Vol] 5.4 10*3/uL 2.0-7.7 [facility] Anion gap in Serum or Plasma Ordered By: [facility] on 08-07-2024 Anion gap [Moles/Vol] 13 mmol/L 5-15 [facility] Automated lymphocyte count a s percentage of total leukocytesOrdered By: [facility] Correa on 08-07-2024 Lymphocytes/100 WBC Auto (Unsp spec) 22.4 % 19-41 [facility] BUN/creatinine ratioOrdered By: Bert Correa on 08-07-2024 Urea nitrogen/Creatinine [Mass ratio] 22.3 mg/mg High 10-20 [facility] Basic Metabolic Profile (BMP )on 08-07-2024 BUN/CRE 22.3 RATIO High 01-20 [facility] Comment on above: Performed By: #### L 500.2500, L100.0100 #### [facility] [address] [place], [address] ECRCL 36.45 ml/min Low 50-250 [facility] Comment on above: Performed By: #### L 500.2500, L100.0100 #### [facility] [address] [place], [address] GAP 13 Normal 5-15 [facility] Comment on above: Performed By: #### L 500.2500, L100.0100 #### [facility] [address] [place], [address] Potassium [Moles/Vol] 4.2 mmol/L Normal 3.3-5.1 [facility] Comment on above: Performed By: #### L 500.2500, L100.0100 #### [facility] [address] [place], [address] Basophil percentageOrdered B y: Bert Correa on 08-07-2024 Basophils/100 WBC (Bld) 0.3 % 0-1 [facility] Brain/Head without Contrasto n 08-07-2024 Brain/Head without Contrast [facility] [address] [place] [address] Brain/Head without Contrast MR#: [id number] Acct: [id number] Name: NIECY JAUREGUI Rep #: [id number] : 1945 M 79 From: Keon molina MD PCP: Dr. Ladarius Painting, Status: REG ER Study: Brain/Head without Contrast Date of Exam: 10/25 Exam# [id number] Ordering Dr: Bert Correa DO PROCEDURE: BRAIN/HEAD WITHOUT CONTRAST 08/07/2024 REASON FOR EXAM: FALL, DEMENTIA TECHNIQUE: Head CT without intravenous contrast. Coronal and Sagittal reconstruction series were provided. One or more dose reduction techniques were used (e.g., Automated exposure control, adjustment of the mA and/or kV according to patient size, use of iterative reconstruction technique. COMPARISON: None FINDINGS: No acute intracranial hemorrhage, mass, mass effect, midline shift or pathologic extra-axial fluid collection. Mild parenchymal atrophy with commensurate increase in CSF containing spaces. Patchy white matter hypodensities, patient demographics favor chronic microvascular ischemic changes. Paranasal sinuses and mastoid air cells are clear. The calvarium is grossly intact. CT/Brain/Head without Contrast IMPRESSION: No acute intracranial abnormality. Chronic microvascular ischemia and involutional changes. Reading Location: [facility] CC: Dr. Bert Correa, DO; Dr. Ladarius Painting, DO [employer]: Signed Normal [facility] CBC W/Diff, Automatedon 05-0 Absolute Lymph 2.01 X10 3/uL Normal 0.83-4.51 [facility] Comment on above: Performed By: #### L 500.2500, L100.0100 #### [facility] [address] [place], [address] Absolute Neut 5.4 X10 3/uL Normal 2.0-7.7 [facility] Comment on above: Performed By: #### L 500.2500, L100.0100 #### [facility] [address] [place], [address] Basophils/100 WBC (Bld) 0.3 % Normal 0-1 [facility] Comment on above: Performed By: #### L 500.2500, L100.0100 #### [facility] [address] [place], [address] Eosinophils/100 WBC (Bld) 5.5 % High 0-5 [facility] Comment on above: Performed By: #### L 500.2500, L100.0100 #### [facility] [address] [place], [address] Erythrocyte distribution width (RBC) [Ratio] 13.5 % Normal 11.6-14.6 [facility] Comment on above: Performed By: #### L 500.2500, L100.0100 #### [facility] [address] [place], [address] Hematocrit (Bld) [Volume fraction] 38.8 % Low 40-54 [facility] Comment on above: Performed By: #### L 500.2500, L100.0100 #### [facility] [address] [place], [address] Hemoglobin (Bld) [Mass/Vol] 13.1 g/dL Normal 13.0-16.5 [facility] Comment on above: Performed By: #### L 500.2500, L100.0100 #### [facility] [address] [place], [address] IG% 0.800 Normal 0.0-0.9 [facility] Comment on above: Result Comment: IG% - Immature Granulocytes (promyelocytes, myelocytes and metamyelocytes) > 1% indicates that a LEFT SHIFT is Present. Performed By: #### L 500.2500, L100.0100 #### [facility] [address] [place], [address] Lymphocytes/100 WBC (Bld) 22.4 % Normal 19-41 [facility] Comment on above: Performed By: #### L 500.2500, L100.0100 #### [facility] [address] [place], [address] MCH (RBC) [Entitic mass] 30.7 pg Normal 27.0-32.0 [facility] Comment on above: Performed By: #### L 500.2500, L100.0100 #### [facility] [address] [place], [address] MCHC (RBC) [Mass/Vol] 33.8 g/dL Normal 32-36 [facility] Comment on above: Performed By: #### L 500.2500, L100.0100 #### [facility] [address] [place], [address] MCV (RBC) [Entitic vol] 90.9 fL Normal 80-94 [facility] Comment on above: Performed By: #### L 500.2500, L100.0100 #### [facility] [address] [place], [address] Monocytes/100 WBC (Bld) 10.8 % High 0-10 [facility] Comment on above: Performed By: #### L 500.2500, L100.0100 #### [facility] [address] [place], [address] Neutrophils/100 WBC (Bld) 60.2 % Normal 47-70 [facility] Comment on above: Performed By: #### L 500.2500, L100.0100 #### [facility] [address] [place], [address] Nucleated RBC (Bld) [#/Vol] 0 10*3/uL Normal 0-5 [facility] Comment on above: Performed By: #### L 500.2500, L100.0100 #### [facility] [address] [place], [address] Platelet mean volume (Bld) [Entitic vol] 8.8 fL Normal 6.2-12.0 [facility] Comment on above: Performed By: #### L 500.2500, L100.0100 #### [facility] [address] [place], [address] Platelets (Bld) [#/Vol] 222 10*3/uL Normal 150-450 [facility] Comment on above: Performed By: #### L 500.2500, L100.0100 #### [facility] [address] [place], [address] RBC (Bld) [#/Vol] 4.27 10*6/uL Low 4.6-6.2 [facility] Comment on above: Performed By: #### L 500.2500, L100.0100 #### [facility] [address] [place], [address] RDW SD 44.4 fl High 35.1-43.9 [facility] Comment on above: Performed By: #### L 500.2500, L100.0100 #### [facility] [address] [place], [address] WBC (Bld) [#/Vol] 9.0 10*3/uL Normal 4.4-11.0 [facility] Comment on above: Performed By: #### L 500.2500, L100.0100 #### [facility] [address] [place], [address] CTA Abd/Pelvis W/WO Contrast on 08-07-2024 CTA Abd/Pelvis W/WO Contrast [facility] Services [address] [facility] [place] [address] CTA Abd/Pelvis W/WO Contrast MR#: [id number] Acct: [id number] Name: NIECY JAUREGUI Rep #: [id number] : 1945 M 79 From: Trav Kirkland MD PCP: Dr. Ladarius Painting, DO Status: [facility] Study: CTA Abd/Pelvis W/WO Contrast Date of Exam: 10/25 Exam# [id number] Ordering Dr: Bert Correa DO PROCEDURE: CTA ABDOMEN/PELVIS WITH IV CONTRAST 08/07/2024 REASON FOR EXAM: AAA AND BACK PAIN TECHNIQUE: CTA imaging of the abdomen and pelvis with intravenous contrast. Contiguous axial scans of 2.5 mm slice thicknesses. Sagittal and coronal reconstruction images were obtained. One or more dose reduction techniques were used (e.g., automated exposure control, adjustment of mA and/or kv according to patient size, use of iterative reconstruction technique). CONTRAST: ISOVUE 370 VOLUME: 100 ML RADIATION DOSE SUMMARY: DLP: 1186.03 MGycm COMPARISON: NO RELEVANT PRIOR FINDINGS: Aorta: Iyos-ad-eefoabkd atherosclerotic calcific disease. Fusiform aneurysmal dilatation of the aorta at the bifurcation measuring 4.4 x 3.9 cm. Eccentric thrombus is noted. Functional lumen size measures 3.1 x 2.4 cm. No evidence of dissection. Iliac Arteries: No aneurysms. Atherosclerotic calcifications. Mild tortuosity. Celiac: No critical stenoses. Mild atherosclerotic calcifications. SMA: No critical stenoses. Mild atherosclerotic calcifications. LINA : Not visualized. Right Renal: No critical stenoses. Mild atheromatous calcification. Left Renal: No critical stenosis. Mild atheromatous calcific disease. Other Findings: Bilateral renal cysts, largest in the superior pole of the left kidney measuring 3.5 x 3.2 cm. Bilateral nonobstructing nephrolithiasis. Colonic diverticulosis, descending and sigmoid colon without signs of diverticulitis. Fat containing left inguinal hernia. Multilevel spondylosis. Centrilobular emphysematous changes. Coronary artery calcifications. CT/CTA Abd/Pelvis W/WO Contrast IMPRESSION: 1. Fusiform aneurysm at the bifurcation, measurements documented above. 2. Diffuse atherosclerotic calcifications involving the visceral arteries and aorta, mild in the visceral arteries and moderate in the aorta. 3. Bilateral renal cysts. 4. Bilateral nonobstructing nephrolithiasis. 5. Diverticulosis without signs of diverticulitis 6. Fat containing left inguinal hernia. 7. Centrilobular emphysematous changes. 8. Coronary artery calcifications. Reading Location: [facility] CC: Dr. Bert Correa DO; Dr. Ladarius Painting DO [employer]: Signed Normal [facility] Carbon dioxide, total [Moles /volume] in Central venous bloodOrdered By: Bert Correa on 08-07-2024 CO2 [Moles/Vol] 19.7 mmol/L Low 21.0-32.0 [facility] Comment on above: Performed By: #### L 500.2500, L100.0100 #### [facility] [address] [facility]. [place], [place], [address] Chest without Contraston Chest without Contrast [facility] Services [address] [place] [address] Chest without Contrast MR#: [id number] Acct: [id number] Name: NIECY JAUREGUI Rep #: [id number] : 1945 M 79 From: Keon molina MD PCP: Dr. Ladarius Painting DO Status: REG ER Study: Chest without Contrast Date of Exam: 08/07/24 Exam# [id number] Ordering Dr: Bert Correa DO PROCEDURE: CHEST WITHOUT CONTRAST 08/07/2024 REASON FOR EXAM: FALL TECHNIQUE: Chest CT without contrast. Coronal and Sagittal reconstruction series were provided. One or more dose reduction techniques were used (e.g., Automated exposure control, adjustment of the mA and/or kV according to patient size, use of iterative reconstruction technique COMPARISON: None FINDINGS: Hardware: Right shoulder arthroplasty. Lymph nodes: No suspicious adenopathy. Heart and Vasculature: No cardiomegaly. Severe coronary artery calcifications. No pericardial effusion. Atherosclerotic calcifications of the thoracic aorta. Thoracic aorta and pulmonary arteries have normal contours; noncontrast technique limits evaluation. Coronary Artery Calcifications: Present Lungs and Airways: Central airways are patent without endobronchial lesions. Moderate upper lobe predominant centrilobular emphysema. 4 mm right upper lobe nodule (series 10, image 20). Otherwise, no suspicious pulmonary nodules. No focal consolidation. No pneumothorax. No pleural effusion. Patchy opacities in the lung base, compatible with atelectasis. Left upper lobe calcified granuloma. Upper Abdomen: Multiple bilateral renal cysts. Small hiatal hernia. Bones: Multiple remote bilateral rib fractures. No acute osseous abnormality. Diffuse osteopenia. CT/Chest without Contrast IMPRESSION: No acute findings in the thorax. Moderate upper lobe centrilobular emphysema. 4 mm indeterminate right upper lobe pulmonary nodule. Reading Location: [facility] CC: Dr. Bert Correa DO; Dr. Ladarius Painting DO [employer]her: Signed Normal [facility] Chloride assayOrdered By: Daysi Correa on 08-07-2024 Chloride [Moles/Vol] 109 mmol/L High 98-[address] [facility] Comment on above: Performed By: #### L 500.2500, L100.0100 #### [facility] [address] [facility] [place], [address] Emergency Department Summary on 08-07-2024 Emergency Department Summary [facility] Medical Records Department [address] [place] [address] Emergency Department Summary 08/07/24 MR#: [id number] Acct: [id number] Name: NIECY JAUREGUI Rep #: [id number] : 1945 79 From: Bert Correa DO PCP: Dr. Ladarius Painting, Status:REG ER Location: ED HPI HPI - Fall History of Present Illness Chief Complaint: Fall Detail of Chief Complaint: Fall Informant: patient Narrative Narrative: Patient presents to the emergency department after a fall that was unwitnessed at memory care unit at [place]. Patient very poor historian due to history of dementia. He has history of chronic back pain. Complains of some discomfort of pain in his right upper back. Patient not anticoagulated [facility] Medical History (Updated 08/07/24 @ 21:[address] Bert Correa DO) Barretts esophagus GERD (gastroesophageal reflux disease) Embolism and thrombosis HTN (hypertension) Alzheimer disease Dementia Hyperlipidemia Allergy/AdvReac Type Severity Reaction Status Date / Time bacitracin (From Neosporin Allergy Unknown unknown Verified 08/07/24 18:09 ([id number])) Latex, Natural Rubber Allergy Unknown unknown Verified 08/07/24 18:09 neomycin (From Neosporin Allergy Unknown unknown Verified 08/07/24 18:09 ([id number])) polymyxin B (From Neosporin Allergy Unknown unknown Verified 08/07/24 18:09 ([id number])) sulfamethoxazole (From Allergy Unknown unknown Verified 08/07/24 18:09 Bactrim) trimethoprim (From Bactrim) Allergy Unknown unknown Verified 08/07/24 18:09 Social History Smoking Status: Unknown if ever smoked ROS ROS ED ROS Narrative Difficult to obtain due to mental status however he will answer yes and no questions. Review of Systems ROS Unobtainable: due to mental status and other Constitutional Constitutional ED: Reports lethargy; Denies chills, fever(s), sweats or weight loss Eyes Eyes: Denies blurry vision, change in vision or diplopia ENT ENT ED: Denies rhinorrhea or sore throat Cardiovascular Cardiovascular: Reports racing heartbeat; Denies chest pain or orthopnea Respiratory/Chest Respiratory/Chest: Denies cough, dyspnea, dyspnea on exertion, orthopnea or sputum Gastrointestinal Gastrointestinal: Denies abdominal pain, diarrhea, nausea or vomiting Genitourinary Genitourinary ED: Denies dysuria, hematuria or urinary frequency Musculoskeletal Musculoskeletal: Reports back pain; Denies arthralgias, myalgias or neck pain Integumentary Denies abscess, Abrasions or rash Neurologic Neurologic: Denies headache(s) or weakness Psychiatric Psychiatric: Denies anxiety, depression or suicidal thoughts Endocrine Endocrinology: Denies polydipsia, polyphagia or polyuria Hematologic/Lymphat ic Hematologic/Lymphat ic: Denies easy bleeding, easy bruising or lymphadenopathy Allergic/Immunologi c Allergic/Immunologi c ED: Denies mouth swelling, tongue swelling or urticaria EXAM Physical Exam Const Vital Signs: 08/07/24 18:04 08/07/24 20:23 08/07/24 20:26 Temperature 98.8 F Temperature Source Oral Pulse Rate 125 H 100 Respiratory Rate 18 19 H Respiratory Effort Normal Non-Labored Respiratory Depth Normal Respiratory Pattern Normal Blood Pressure 133/96 H 130/92 H Blood Pressure Mean 108 104 Pulse Ox 97 96 Oxygen Delivery Method Room Air Room Air Room Air 08/07/24 21:41 Temperature 98.8 F Temperature Source Pulse Rate 98 Respiratory Rate 16 Respiratory Effort Respiratory Depth Respiratory Pattern Blood Pressure 136/89 H Blood Pressure Mean 104 Pulse Ox 96 Oxygen Delivery Method Positive well nourished and well developed General Appearance ED: well developed and NAD HEENT Reports TM's clear and moist mucous membranes HEENT Narrative: No external evidence of trauma to his head. normocephalic and atraumatic; Negative for trauma or tenderness Tympanic Membrane ED: Yes TM's clear Eyes PERRL and EOMs intact bilaterally General Eye ED: Negative for pale conjunctiva or scleral icterus Neck no lymphadenopathy, supple and no JVD General: Negative for tenderness Chest Wall inspection of chest normal and palpation of chest normal Chest: Negative for tenderness Resp normal respiratory effort and clear to auscultation bilaterally Effort and Inspection: Negative for respiratory distress or pain with movement Auscultation: Negative for rhonchi, wheezes or diminished lung sounds Cardio regular rate, regular rhythm, S1 normal heart sound, S2 normal heart sound and no murmurs Peripheral Pulses: pulses 2+ throughout GI normal to inspection, nondistended, normoactive bowel sounds, soft to palpation, non-tender, non- distended and no masses Back/Spine no CVA tenderness and no thoracic nor lumbar tenderness Stephani (more content not included)... Normal [facility] Eosinophil percentageOrdered By: Bert Correa on 08-07-2024 Eosinophils/100 WBC (Bld) 5.5 % High 0-5 [facility] Erythrocyte distribution wid th ratioOrdered By: Bert Correa on 08-07-2024 Erythrocyte distribution width (RBC) [Ratio] 13.5 % 11.6-14.6 [facility] Erythrocyte distribution wid th standard deviationOrdered By: Bert Correa on 08-07-2024 Erythrocyte distribution width (RBC) [Ratio] 44.4 fl High 35.1-43.9 [facility] Glomerular filtration rate ( GFR) estimation/1.73 sq m using serum, plasma, or whole bOrdered By: Bert Correa on 08-07-2024 GFR/1.73 sq M.predicted among non-blacks MDRD (S/P/Bld) [Vol rate/Area] 39 mL/min/{1.73_m2} Low >60 [facility] Comment on above: mL/min/1.73m2 CKD-EP I Creatinine Equation (2020) Result Comment: mL/m in/1.73m2 CKD-EPI Creatinine Equation (2020) Performed By: #### L 500.2500, L100.0100 #### [facility] [address] [facility] [place], [address] Hematocrit Auto (Bld) [Volum e fraction]Ordered By: Bert Correa on 08-07-2024 Hematocrit (Bld) [Volume fraction] 38.8 % Low 40-54 [facility] Hemoglobin measurementOrdere d By: Bert Correa on 08-07-2024 Hemoglobin (Bld) [Mass/Vol] 13.1 g/dL 13.0-16.5 [facility] Immature granulocytes/100 WB C Auto (Bld)Ordered By: [place] Madeline on 08-07-2024 Immature granulocytes/100 WBC (Bld) 0.800 % 0.0-0.9 [facility] Comment on above: IG% - Immature Granu locytes (promyelocytes, myelocytes and metamyelocytes) > 1% indicates that a LEFT SHIFT is Present. Lumbar Spine 2 or 3 Viewson 08-07-2024 Lumbar Spine 2 or 3 Views [facility] [address] [place] [address] Lumbar Spine 2 or 3 Views MR#: [id number] Acct: [id number] Name: NIECY JAUREGUI Rep #: [id number] : 1945 M 79 From: Keon molina MD PCP: Dr. Ladarius Painting DO Status: REG ER Study: Lumbar Spine 2 or 3 Views Date of Exam: Exam# [id number] Ordering Dr: Bert Correa DO PROCEDURE: LUMBAR SPINE 2 OR 3 VIEWS; PELVIS 1 OR 2 VIEWS 08/07/2024 REASON FOR EXAM: FALLL; FALL TECHNIQUE: 2 view(s) of the lumbar spine COMPARISON: None FINDINGS: Straightening of the lumbar lordosis. Mild remote compression deformities T12-L2 vertebral bodies. Multilevel loss of disc spaces. Pedicles are intact. Osseous architecture is maintained. Moderate-severe multilevel degenerative changes throughout the lumbar spine. No acute fracture or traumatic subluxation. SI joints are unremarkable. No suspicious lytic or blastic lesion. Moderate degenerative changes of the hip joints. Dense atherosclerotic calcification of the abdominal aorta and suggestion of a 5.1 cm aneurysmal dilation infrarenal aorta RAD/Lumbar Spine 2 or 3 Views IMPRESSION: No acute fracture or dislocation. Ednwdsab-nz-lyubyz degenerative changes as described above. 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 Recommend CT of the abdomen and pelvis for further evaluation. Reading Location: [facility] CC: Dr. Bert Correa DO; Dr. Ladarius Painting DO [employer]: Signed Normal [facility] MCV (mean corpuscular volume ) determinationOrdered By: Bert Correa on 08-07-2024 MCV (RBC) [Entitic vol] 90.9 fL 80-94 [facility] Mean corpuscular hemoglobin (MCH) determinationOrdered By: Bert Correa on 08-07-2024 MCH (RBC) [Entitic mass] 30.7 pg 27.0-32.0 [facility] Mean corpuscular hemoglobin concentration (MCHC) determinationOrdered By: Bert Correa on 08-07-2024 MCHC (RBC) [Mass/Vol] 33.8 g/dL 32-36 [facility] Mean platelet volume determi nationOrdered By: Bert Correa on 08-07-2024 Platelet mean volume (Bld) [Entitic vol] 8.8 fL 6.2-12.0 [facility] Monocyte percentageOrdered B y: Bert Correa on 08-07-2024 Monocytes/100 WBC (Bld) 10.8 % High 0-10 [facility] Neutrophil percentageOrdered By: Bert Correa on 08-07-2024 Neutrophils/100 WBC (Bld) 60.2 % 47-70 [facility] Nucleated red blood cell per centageOrdered By: Bert Correa on 08-07-2024 Nucleated RBC/100 WBC (Bld) [Ratio] 0 % 0-5 [facility] Pelvis 1 or 2 Viewson 2024 Pelvis 1 or 2 Views [facility] Imaging Services [address] [place], [place] [address] Pelvis 1 or 2 Views MR#: [id number] Acct: [id number] Name: NIECY JAUREGUI Rep #: [id number] : 1945 M 79 From: Keon molina MD PCP: Dr. Ladarius Painting, Status: [facility] ER Study: Pelvis 1 or 2 Views Date of Exam: 08/07/24 Exam# [id number] Ordering Dr: Bert Correa DO PROCEDURE: LUMBAR SPINE 2 OR 3 VIEWS; PELVIS 1 OR 2 VIEWS 08/07/2024 REASON FOR EXAM: FALLL; FALL TECHNIQUE: 2 view(s) of the lumbar spine COMPARISON: None FINDINGS: Straightening of the lumbar lordosis. Mild remote compression deformities T12-L2 vertebral bodies. Multilevel loss of disc spaces. Pedicles are intact. Osseous architecture is maintained. Moderate-severe multilevel degenerative changes throughout the lumbar spine. No acute fracture or traumatic subluxation. SI joints are unremarkable. No suspicious lytic or blastic lesion. Moderate degenerative changes of the hip joints. Dense atherosclerotic calcification of the abdominal aorta and suggestion of a 5.1 cm aneurysmal dilation infrarenal aorta RAD/Pelvis 1 or 2 Views IMPRESSION: No acute fracture or dislocation. Mskusmwf-nz-tlppls degenerative changes as described above. 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 Recommend CT of the abdomen and pelvis for further evaluation. Reading Location: [facility] CC: Dr. Bert Correa, DO; Dr. Ladarius Painting, DO [employer]: Signed Normal [facility] Platelet countOrdered By: Daysi Correa on 08-07-2024 Platelets (Bld) [#/Vol] 222 10*3/uL 150-450 [facility] Potassium measurement (mass/ volume)Ordered By: Bert Correa on 08-07-2024 Potassium (Unsp spec) [Mass/Vol] 4.2 mmol/L 3.3-5.1 [facility] RBC Auto (Bld) [#/Vol]Ordere d By: Bert Correa on 08-07-2024 RBC (Bld) [#/Vol] 4.27 10*6/uL Low 4.6-6.2 [facility] Serum creatinine measurement (mass/volume)Ordered By: Bert Correa on 08-07-2024 Creatinine [Mass/Vol] 1.75 mg/dL High 0.70-1.20 [facility] Comment on above: Performed By: #### L 500.2500, L100.0100 #### [facility] [address] [place], [address] Serum glucose measurement (m ass/volume)Ordered By: Bert Correa on 08-07-2024 Glucose [Mass/Vol] 118 mg/dL High 70-99 [facility] Comment on above: Performed By: #### L 500.2500, L100.0100 #### [facility] [address] [place], [address] Serum or plasma calcium zayra urement (mass/volume)Ordered By: Bert Correa on 08-07-2024 Calcium [Mass/Vol] 9.4 mg/dL Normal 7.6-11.0 [facility] Comment on above: Performed By: #### L 500.2500, L100.0100 #### [facility] [address] [place], [address] Serum or plasma urea nitroge n measurement (mass/volume)Ordered By: Bert Correa on 08-07-2024 Urea nitrogen [Mass/Vol] 39 mg/dL High 4-19 [facility] Comment on above: Performed By: #### L 500.2500, L100.0100 #### [facility] [address] [place], [address] Sodium levelOrdered By: Lidia Correa on 08-07-2024 Sodium [Moles/Vol] 142 mmol/L Normal 133-145 [facility] Comment on above: Performed By: #### L 500.2500, L100.0100 #### [facility] [address] [facility] [place], [address] Spine Cervical without Contr ason 08-07-2024 Spine Cervical without Contras [facility] Imaging Services [address] [place] [address] Spine Cervical without Contras MR#: [id number] Acct: [id number] Name: NIECY JAUREGUI Rep #: [id number] : 1945 M 79 From: Keon molina MD PCP: Dr. Ladarius Painting, Status: REG ER Study: Spine Cervical without Contras Date of Exam: 0 08/07/24 Exam# [id number] Ordering Dr: Bert Correa DO PROCEDURE: SPINE CERVICAL WITHOUT CONTRAS 08/07/2024 REASON FOR EXAM: FALL TECHNIQUE: Cervical spine CT without contrast. Coronal and Sagittal reconstruction series were provided. One or more dose reduction techniques were used (e.g., Automated exposure control, adjustment of the mA and/or kV according to patient size, use of iterative reconstruction technique COMPARISON: None FINDINGS: Alignment: Straightening of the cervical lordosis. Atlantoaxial interval is maintained. Vertebrae: Vertebral body heights are maintained. Multilevel loss of disc space throughout the cervical spine. No acute fracture or traumatic subluxation. Multilevel degenerative changes, most prominent at C3-C4 with up to moderate canal stenosis and severe neural foraminal narrowing. Soft Tissues: No focal soft tissue abnormality. Other: Severe emphysema within the imaged lung apices. CT/Spine Cervical without Contras IMPRESSION: No acute fracture or traumatic subluxation. Multilevel degenerative changes most prominent at C3-C4. [facility] CC: Dr. Bert Correa DO; Dr. Ladarius Painting DO [employer]: Signed Normal [facility] White blood cell (WBC) count Ordered By: Bert Correa on 08-07-2024 WBC (Bld) [#/Vol] 9.0 10*3/uL 4.4-11.0 [facility] Vital Signs Date Time Vital Sign Value Performing Clinician Faci lity 08-08-2024 04:00-0400 Heart rate 81 /min Dr. Ladarius Painting DO Work Phone: [facility] 08-08-2024 04:00-0400 Respiratory rate 16 /min Dr. Ladarius Painting DO Work Phone: [facility] 08-08-2024 04:00-0400 SaO2% (BldA) [Mass fraction] 95 % Dr. Ladarius Painting DO Work Phone: [facility] 08-08-2024 02:04-0400 Diastolic blood pressure 89 mm[Hg] Dr. Ladarius Painting DO Work Phone: [facility] 08-08-2024 02:04-0400 Systolic blood pressure 125 mm[Hg] Dr. Ladarius Painting DO Work Phone: [facility] 08-07-2024 21:41-0400 Body temperature 98.8 [degF] Dr. Ladarius Painting DO Work Phone: [facility] 08-07-2024 18:04-0400 Body height 180.[address] Ladarius Painting DO Work Phone: [facility] 08-07-2024 18:04-0400 Body mass index (BMI) [Ratio] 24.5 kg/m2 Dr. Ladarius Painting DO Work Phone: [facility] 08-07-2024 18:04-0400 Body weight [address] Ladarius Painting DO Work Phone: [facility] Encounters Encounter Date Encounter Type Care Provider Facility Start: 08-07-2024 End: 08-08-2024 Emergency department patient visit Dr. Ladarius Painting DO Work Phone: -Emergency Department Work Phone: Procedures Date Procedure Procedure Detail Performing Clinician Start: 08-07-[address] Ladarius Painting DO Work Phone: Start: 08-07-2024 Computed tomography of abdomen and pelvis with contrast Dr. Ladarius Painting DO Work Phone: Start: 08-07-2024 X-ray of lumbar spin e, two or three views Dr. Ladarius Painting DO Work Phone: Start: 08-07-2024 CT of head without contrast Dr. Ladarius Painting DO Work Phone: Start: 08-07-2024 CT cervical spine wi thout contrast Dr. Ladarius Painting DO Work Phone: Start: 08-07-2024 CT of chest without contrast Dr. Ladarius Painting DO Work Phone: Start: 08-07-2024 Plain radiography of pelvis Dr. Ladarius Painting DO Work Phone: Plan of Treatment Date Care Activity Detail Author Start: 08-07-2024 [facility] Patient Education Delirium and D ementia ED Fall Prevention ED AAA Stable [facility] Work Phone: Patient referral [facility] Work Phone: Payers Date Payer Category Payer Self-pay Medicare MEDICARE PART A B [id number] Unknown [id number] Social History Date Type Detail Facility Start: 08-07-2024 Tobacco smoking status NHIS Tobacco smoking consumption unknown (finding) [facility] Start: 1945 Sex Assigned At Male [facility] Discharge summary 08-08-2024 Note Date & Type Note Facility 08-08-2024 Discharge summary Note Date/Time August 07, 2024 11:15p m [facility] Medical Records Department [address] [place] [address] Emergency Department Summary 08/07/24 MR#: [id number] Acct: [id number] Name: NIECY JAUREGUI Rep #:[id number] : 1945 79 From: Bert Correa DO PCP: Dr. Ladarius Painting, Status:REG ER Location: ED HPI HPI - Fall History of Present Illness Chief Complaint: Fall Detail of Chief Complaint: Fall Informant: patient Narrative Narrative: Patient presents to the emergency department after a fall that was unwitnessed at memory care unit at [place]. Patient very poor historian due to history ofdementia. He has history of chronic back pain. Complains of some discomfort ofpain in his right upper back. Patient not anticoagulated [facility] Medical History (Updated 08/07/24 @ 21:[address] Bert Correa DO) Barretts esophagus GERD (gastroesophageal reflux disease) Embolism and thrombosis HTN (hypertension) Alzheimer disease Dementia Hyperlipidemia Allergy/AdvReac Type Severity Reaction Status Date / Time bacitracin (From Neosporin Allergy Unknown unknown Verified 08/07/24 18:09 ([id number])) Latex, Natural Rubber Allergy Unknown unknown Verified 08/07/24 18:09 neomycin (From Neosporin Allergy Unknown unknown Verified 08/07/24 18:09 ([id number])) polymyxin B (From Neosporin Allergy Unknown unknown Verified 08/07/24 18:09 ([id number])) sulfamethoxazole (From Allergy Unknown unknown Verified 08/07/24 18:09 Bactrim) trimethoprim (From Bactrim) Allergy Unknown unknown Verified 08/07/24 18:09 Social History Smoking Status: Unknown if ever smoked ROS ROS ED ROS Narrative Difficult to obtain due to mental status however he will answer yes and no questions. Review of Systems ROS Unobtainable: due to mental status and other Constitutional Constitutional ED: Reports lethargy; Denies chills, fever(s), sweats or weight loss Eyes Eyes: Denies blurry vision, change in vision or diplopia ENT ENT ED: Denies rhinorrhea or sore throat Cardiovascular Cardiovascular: Reports racing heartbeat; Denies chest pain or orthopnea Respiratory/Chest Respiratory/Chest: Denies cough, dyspnea, dyspnea on exertion, orthopnea or sputum Gastrointestinal Gastrointestinal: Denies abdominal pain, diarrhea, nausea or vomiting Genitourinary Genitourinary ED: Denies dysuria, hematuria or urinary frequency Musculoskeletal Musculoskeletal: Reports back pain; Denies arthralgias, myalgias or neck pain Integumentary Denies abscess, Abrasions or rash Neurologic Neurologic: Denies headache(s) or weakness Psychiatric Psychiatric: Denies anxiety, depression or suicidal thoughts Endocrine Endocrinology: Denies polydipsia, polyphagia or polyuria Hematologic/Lymphatic Hematologic/Lymphatic: Denies easy bleeding, easy bruising or lymphadenopathy Allergic/Immunologic Allergic/Immunologic ED: Denies mouth swelling, tongue swelling or urticaria EXAM Physical Exam Const Vital Signs: 08/07/24 18:04 08/07/24 20:23 08/07/24 20:26 Temperature 98.8 F Temperature Source Oral Pulse Rate 125 H 100 Respiratory Rate 18 19 H Respiratory Effort Normal Non-Labored Respiratory Depth Normal Respiratory Pattern Normal Blood Pressure 133/96 H 130/92 H Blood Pressure Mean 108 104 Pulse Ox 97 96 Oxygen Delivery Method Room Air Room Air Room Air 08/07/24 21:41 Temperature 98.8 F Temperature Source Pulse Rate 98 Respiratory Rate 16 Respiratory Effort Respiratory Depth Respiratory Pattern Blood Pressure 136/89 H Blood Pressure Mean 104 Pulse Ox 96 Oxygen Delivery Method Positive well nourished and well developed General Appearance ED: well developed and NAD HEENT Reports TM's clear and moist mucous membranes HEENT Narrative: No external evidence of trauma to his head. normocephalic and atraumatic; Negative for trauma or tenderness Tympanic Membrane ED: Yes TM's clear Eyes PERRL and EOMs intact bilaterally General Eye ED: Negative for pale conjunctiva or scleral icterus Neck no lymphadenopathy, supple and no JVD General: Negative for tenderness Chest Wall inspection of chest normal and palpation of chest normal Chest: Negative for tenderness Resp normal respiratory effort and clear to auscultation bilaterally Effort and Inspection: Negative for respiratory distress or pain with movement Auscultation: Negative for rhonchi, wheezes or diminished lung sounds Cardio regular rate, regular rhythm, S1 normal heart sound, S2 normal heart sound and no murmurs Peripheral Pulses: pulses 2+ throughout GI normal to inspection, nondistended, normoactive bowel sounds, soft to palpation,non-tender, non-distended and no masses Back/Spine no CVA tenderness and no thoracic nor lumbar tenderness Back/Spine Narrative: Mild diffuse tenderness over thoracic spine and right posterior ribs. No significant tenderness over the lumbar spine. No ecchymosis or bruising noted. Extremity normal to inspection General Extremety ED: Negative for edema General Extremity: Negative for edema Neuro oriented x3, CN's II-XII intact bilaterally, no sensory deficits noted and gait normal Sensorium / Orientation: awake, alert, oriented to person, oriented to place andoriented to time Motor Exam: strength 5/5 throughout and strength abnormal Psych mental status grossly normal Skin no rashes or lesions noted and no wounds MDM MDM MDM Narrative Medical decision making narrative: Patient presents to the emergency department after an acute fall. Very poor historian given history of dementia. Apparently does have history of some chronic back pain. Patient had a CT scan of the brain without contrast that showed no acute intracranial injury. He had a CT of the cervical spine that showed degenerative changes without acute fracture. Patient had x-rays of the lumbar spine that showed degenerative changes without fracture. Patient also had x-ray of the pelvis which did not show fractures however did show concern for 5.1 cm infrarenal aortic aneurysm and recommended obtaining CT scan of the abdomen pelvis. I did obtain a CT scan of the chest initially that did not showany rib fractures or thoracic vertebral fractures. CT scan of the abdomen pelvis with IV contrast obtained showed a infrarenal aneurysm measuring 4.4 cm. No evidence for dissection or rupture. At this point we will discharge patient back to retirement will refer to vascular surgery for follow-up regarding the aneurysm as I do not feel this needs emergent attention. Lab Data Attestation: I reviewed the patient's lab results. Labs: Laboratory Results - last 24 hr 08/07/24 20:20 WBC 9.0 RBC 4.27 L Hgb 13.1 Hct 38.8 L MCV 90.9 MCH 30.7 MCHC 33.8 RDW Std Deviation 44.4 H RDW Coeff of Chary 13.5 Plt Count 222 MPV 8.8 Immature Gran % (Auto) 0.800 Neut % (Auto) 60.2 Lymph % (Auto) 22.4 Baker % (Auto) 10.8 H Eos % (Auto) 5.5 H Baso % (Auto) 0.3 Absolute Neuts (auto) 5.4 Absolute Lymphs (auto) 2.01 Nucleated RBC % 0 Sodium 142 Potassium 4.2 Chloride 109 H Carbon Dioxide 19.7 L Anion Gap 13 BUN 39 H Creatinine 1.75 H Estim Creat Clear Calc 36.45 L Est GFR (MDRD) Non-Af 39 L BUN/Creatinine Ratio 22.3 H Glucose 118 H Calcium 9.4 Radiography Diagnostic Testing: Clinical Impression(s) from Imaging Studies Cervical Spine CT 08/07/24 18:22 IMPRESSION: No acute fracture or traumatic subluxation. Multilevel degenerative changes most prominent at C3-C4. Reading [facility] 08/07/24 18:22 IMPRESSION: No acute findings in the thorax. Moderate upper lobe centrilobular emphysema. 4 mm indeterminate right upper lobe pulmonary nodule. Reading Location: [facility] Pelvis X-Ray 08/07/24 18:22 IMPRESSION: No acute fracture or dislocation. Fhcguiyh-ee-rlsqmw degenerative changes as described above. 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 Recommend CT of the abdomen and pelvis for further evaluation. Reading Location[facility] Brain CT 08/07/24 18:30 IMPRESSION: No acute intracranial abnormality. Chronic microvascular ischemia and involutional changes. Reading Location[facility] Lumbar Spine X-Ray 08/07/24 18:40 IMPRESSION: No acute fracture or dislocation. Dnoewpmm-wl-uuimrd degenerative changes as described above. 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 Recommend CT of the abdomen and pelvis for further evaluation. Reading Location: [facility] Abdomen/Pelvis CTA 08/07/24 19:55 IMPRESSION: 1. Fusiform aneurysm at the bifurcation, measurements documented above. 2. Diffuse atherosclerotic calcifications involving the visceral arteries and aorta, mild in the visceral arteries and moderate in the aorta. 3. Bilateral renal cysts. 4. Bilateral nonobstructing nephrolithiasis. 5. Diverticulosis without signs of diverticulitis 6. Fat containing left inguinal hernia. 7. Centrilobular emphysematous changes. 8. Coronary artery calcifications. Reading Location: [facility] 1 view x-ray of the pelvis obtained interpreted by myself as no evidence of fractures and noted degenerative changes. Radiology in agreement with a noted concern for 5.1 cm aneurysmal dilatation infrarenal aorta and recommended CT of the abdomen and pelvis for further evaluation. Three-view x-rays of the lumbar spine obtained interpreted by myself as degenerative changes without evidence of fracture. Radiology in agreement but again noted aneurysmal dilatation of aorta recommended CT imaging. Discharge Plan Triage Chief Complaint: Fall ED Provider: Bert Correa Dx/Rx/DC Orders Clinical Impression: Fall, Dementia, AAA (abdominal aortic aneurysm) Instructions: Delirium and Dementia, ED Fall Prevention, ED AAA Stable Primary Care Provider: Ladarius Painting Referrals: Trav Dacosta MD [Med Staff - Active Staff] - 5-7 Days Ladarius Painting DO [Primary Care Provider] - 3-5 Days Print Language: Hungarian Disposition Disposition: Home, Self Care What to do if you have Problems For any increased pain, shortness of breath, bleeding, nausea or vomiting, chestpain, or any unexpected problems, contact your Primary Care Provider. Call [facility] ([phone]) or report to the closest Emergency Room. Call 911 if necessary. 08/07/242314 <Electronically signed by Bert Correa DO> Cosigner Signature (if applicable): CC: Dr. Ladarius Painting DO ~ Signed [facility] Work Phone: Discharge summary 08-07-2024 Note Date & Type Note Facility 08-07-2024 Discharge summary [facility] Radiology Diagnostic study note 08-07-2024 Note Date & Type Note Facility 08-07-2024 Radiology Diagnostic study note [facility] Imaging Services [address] [place], [place] [id number] CTA Abd/Pelvis W/WO Contrast MR#: [id number] Acct: [id number] Name: NIECY JAUREGIU Rep #: [id number] : 1945 M 79 From: Aura Kirkland MD PCP: Dr. Ladarius Painting, DO Status: REG ER Study:CTA Abd/Pelvis W/WO Contrast Date of Ex am: 08/07/24 Exam# [id number] Ordering Dr: Daysi Correa DO PROCEDURE: CTA ABDOMEN/PELVIS WITH IV CONTRAST 08/07/2024 REASON FOR EXAM: AAA AND BACK PAIN TECHNIQUE: CTA imaging of the abdomen and pelvis with intravenous contrast. Contiguous axial scans of 2.5 mm slice thicknesses. Sagittal and coronal reconstruction images were obtained. One or more dose reduction techniques were used (e.g., automated exposure control, adjustment of mA and/or kv according to patient size, use of iterative reconstruction technique). CONTRAST: ISOVUE 370 VOLUME: 100 ML RADIATION DOSE SUMMARY: DLP: 1186.03 MGycm COMPARISON: NO RELEVANT PRIOR FINDINGS: Aorta: Betd-ei-hcaerylj atherosclerotic calcific disease. Fusiform aneurysmal dilatation of the aorta at the bifurcation measuring 4.4 x 3.9 cm. Eccentric thrombus is noted. Functional lumen size measures 3.1 x 2.4 cm. No evidence of dissection. Iliac Arteries: No aneurysms. Atherosclerotic calcifications. Mild tortuosity. Celiac: No critical stenoses. Mild atherosclerotic calcifications. SMA: No critical stenoses. Mild atherosclerotic calcifications. LINA : Not visualized. Right Renal: No critical stenoses. Mild atheromatous calcification. Left Renal: No critical stenosis. Mild atheromatous calcific disease. Other Findings: Bilateral renal cysts, largest in the superior pole of the left kidney measuring 3.5 x 3.2 cm. Bilateral nonobstructing nephrolithiasis. Colonic diverticulosis, descending and sigmoid colon without signs of diverticulitis. Fat containing left inguinal hernia. Multilevel spondylosis. Centrilobular emphysematous changes. Coronary artery calcifications. CT/CTA Abd/Pelvis W/WO Contrast IMPRESSION: 1. Fusiform aneurysm at the bifurcation, measurements documented above. 2. Diffuse atherosclerotic calcifications involving the visceral arteries and aorta, mild in the visceral arteries and moderate in the aorta. 3. Bilateral renal cysts. 4. Bilateral nonobstructing nephrolithiasis. 5. Diverticulosis without signs of diverticulitis 6. Fat containing left inguinal hernia. 7. Centrilobular emphysematous changes. 8. Coronary artery calcifications. Reading Location: [facility] CC: Dr. Bert Correa DO; Dr. Ladarius Painting DO ~ [employer]: Signed [facility] Radiology Diagnostic study note 08-07-2024 Note Date & Type Note Facility 08-07-2024 Radiology Diagnostic study note [facility] Imaging Services [address] [place], [place] [id number] Spine Cervical without Contras MR#: [id number] Acct: [id number] Name: NIECY JAUREGUI Rep #: [id number] : 1945 M 79 From: Donna Us MD PCP: Dr. Ladarius Painting DO Status: REG ER Study:Spine Cervical without Contras Date of Exam: 08/07/24 Exam# [id number] Ordering Dr: Daysi Correa DO PROCEDURE: SPINE CERVICAL WITHOUT CONTRAS 08/07/2024 REASON FOR EXAM: FALL TECHNIQUE: Cervical spine CT without contrast. Coronal and Sagittal reconstruction series were provided. One or more dose reduction techniques were used (e.g., Automated exposure control, adjustment of the mA and/or kV according to patient size, use of iterative reconstruction technique COMPARISON: None FINDINGS: Alignment: Straightening of the cervical lordosis. Atlantoaxial interval is maintained. Vertebrae: Vertebral body heights are maintained. Multilevel loss of disc spacethroughout the cervical spine. No acute fracture or traumatic subluxation. Multilevel degenerative changes, most prominent at C3-C4 with up to moderate canal stenosis and severe neural foraminal narrowing. Soft Tissues: No focal soft tissue abnormality. Other: Severe emphysema within the imaged lung apices. CT/Spine Cervical without Contras IMPRESSION: No acute fracture or traumatic subluxation. Multilevel degenerative changes most prominent at C3-C4. Reading Location: [facility] CC: Dr. Bert Correa DO; Dr. Ladarius Painting DO ~ [employer]: Signed [facility] Radiology Diagnostic study note 08-07-2024 Note Date & Type Note Facility 08-07-2024 Radiology Diagnostic study note [facility] Imaging Services [address] [place] [address] Chest without Contrast MR#: [id number] Acct: [id number] Name: NIECY JAUREGUI Rep #: [id number] : 1945 M 79 From: Donna Us MD PCP: Dr. Ladarius Painting DO Status: REG ER Study:Chest without Contrast Date of Exam: 08/07/24 Exam# [id number] Ordering Dr: Daysi Correa DO PROCEDURE: CHEST WITHOUT CONTRAST 08/07/2024 REASON FOR EXAM: FALL TECHNIQUE: Chest CT without contrast. Coronal and Sagittal reconstruction series were provided. One or more dose reduction techniques were used (e.g., Automated exposure control, adjustment of the mA and/or kV according to patient size, use of iterative reconstruction technique COMPARISON: None FINDINGS: Hardware: Right shoulder arthroplasty. Lymph nodes: No suspicious adenopathy. Heart and Vasculature: No cardiomegaly. Severe coronary artery calcifications. No pericardial effusion. Atherosclerotic calcifications of the thoracic aorta. Thoracic aorta and pulmonary arteries havenormal contours; noncontrast technique limits evaluation. Coronary Artery Calcifications: Present Lungs and Airways: Central airways are patent without endobronchial lesions. Moderate upper lobe predominant centrilobular emphysema. 4 mm right upper lobe nodule (series 10, image 20). Otherwise, no suspicious pulmonary nodules. No focal consolidation. No pneumothorax. No pleural effusion. Patchy opacities in the lung base, compatible with atelectasis. Left upper lobe calcified granuloma. Upper Abdomen: Multiple bilateral renal cysts. Small hiatal hernia. Bones: Multiple remote bilateral rib fractures. No acute osseous abnormality. Diffuse osteopenia. CT/Chest without Contrast IMPRESSION: No acute findings in the thorax. Moderate upper lobe centrilobular emphysema. 4 mm indeterminate right upper lobe pulmonary nodule. Reading Location: [facility] CC: Dr. Bert Correa DO; Dr. Ladarius Painting DO ~ [employer]: Signed [facility] Radiology Diagnostic study note 08-07-2024 Note Date & Type Note Facility 08-07-2024 Radiology Diagnostic study note [facility] Imaging Services [address] [place], [place] [id number] Lumbar Spine 2 or 3 Views MR#: [id number] Acct: [id number] Name: NIECY JAUREGUI Rep #: [id number] : 1945 M 79 From: Donna Us MD PCP: Dr. Ladarius Painting DO Status: REG ER Study:Lumbar Spine 2 or 3 Views Date of Exam: 08/07/24 Exam# [id number] Ordering Dr: Daysi Correa DO PROCEDURE: LUMBAR SPINE 2 OR 3 VIEWS; PELVIS 1 OR 2 VIEWS 08/07/2024 REASON FOR EXAM: FALLL; FALL TECHNIQUE: 2 view(s) of the lumbar spine COMPARISON: None FINDINGS: Straightening of the lumbar lordosis. Mild remote compression deformities T12-L2 vertebral bodies. Multilevel loss of disc spaces. Pedicles are intact. Osseous architecture is maintained. Moderate-severe multilevel degenerative changes throughout the lumbar spine. No acute fracture or traumatic subluxation. SI joints are unremarkable. No suspicious lytic or blastic lesion. Moderate degenerative changes of the hip joints. Dense atherosclerotic calcification of the abdominal aorta and suggestion of a 5.1 cm aneurysmal dilation infrarenal aorta RAD/Lumbar Spine 2 or 3 Views IMPRESSION: No acute fracture or dislocation. Ivexvnlc-[id number] degenerative changes as described above. 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 Recommend CT of the abdomen and pelvis for further evaluation. Reading Location: [facility] CC: Dr. Bert Correa DO; Dr. Ladarius Painting DO ~ [employer]: Signed [facility] Radiology Diagnostic study note 08-07-2024 Note Date & Type Note Facility 08-07-2024 Radiology Diagnostic study note [facility] Imaging Services [address] [place] [address] Pelvis 1 or 2 Views MR#: [id number] Acct: [id number] Name: NIECY JAUREGUI Rep #: [id number] : 1945 M 79 From: Donna Us MD PCP: Dr. Ladarius Painting DO Status: REG ER Study:Pelvis 1 or 2 Views Date of Exam: 08/07/24 Exam# [id number] Ordering Dr: Daysi Correa DO PROCEDURE: LUMBAR SPINE 2 OR 3 VIEWS; PELVIS 1 OR 2 VIEWS 08/07/2024 REASON FOR EXAM: FALLL; FALL TECHNIQUE: 2 view(s) of the lumbar spine COMPARISON: None FINDINGS: Straightening of the lumbar lordosis. Mild remote compression deformities T12-L2 vertebral bodies. Multilevel loss of disc spaces. Pedicles are intact. Osseous architecture is maintained. Moderate-severe multilevel degenerative changes throughout the lumbar spine. No acute fracture or traumatic subluxation. SI joints are unremarkable. No suspicious lytic or blastic lesion. Moderate degenerative changes of the hip joints. Dense atherosclerotic calcification of the abdominal aorta and suggestion of a 5.1 cm aneurysmal dilation infrarenal aorta RAD/Pelvis 1 or 2 Views IMPRESSION: No acute fracture or dislocation. Ofhozaxz-at-ajhkrc degenerative changes as described above. 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 Recommend CT of the abdomen and pelvis for further evaluation. Reading Location: [facility] CC: Dr. Bert Correa DO; Dr. Ladarius Painting DO ~ [employer]: Signed [facility] Radiology Diagnostic study note 08-07-2024 Note Date & Type Note Facility 08-07-2024 Radiology Diagnostic study note [facility] Imaging Services [address] [place], [place] [address] Brain/Head without Contrast MR#: [id number] Acct: [id number] Name: NIECY JAUREGUI Rep #: [id number] : 1945 M 79 From: Donna Us MD PCP: Dr. Ladarius Painting DO Status: REG ER Study:Brain/Head without Contrast Date of Exa m: 08/07/24 Exam# [id number] Ordering Dr: Daysi Correa DO PROCEDURE: BRAIN/HEAD WITHOUT CONTRAST 08/07/2024 REASON FOR EXAM: FALL, DEMENTIA TECHNIQUE: Head CT without intravenous contrast. Coronal and Sagittal reconstruction serieswere provided. One or more dose reduction techniques were used (e.g., Automated exposure control, adjustment of the mA and/or kV according to patient size, use of iterative reconstruction technique. COMPARISON: None FINDINGS: No acute intracranial hemorrhage, mass, mass effect, midline shift or pathologicextra-axial fluid collection. Mild parenchymal atrophy with commensurate increase in CSF containing spaces. Patchy white matter hypodensities, patient demographics favor chronic microvascular ischemic changes. Paranasal sinuses and mastoid air cells are clear. The calvarium is grossly intact. CT/Brain/Head without Contrast IMPRESSION: No acute intracranial abnormality. Chronic microvascular ischemia and involutional changes. [facility] CC: Dr. Bert Correa DO; Dr. Ladarius Painting DO ~ [employer]: Signed [facility] Evaluation note Note Date & Type Note Facility Evaluation note No assessment information availa ble [facility] Work Phone: Reason for referral (narrative) Note Date & Type Note Facility Reason for referral (narrative) No reason for referral information available [facility] Work Phone: Chief Complaint and Reason for Visit Chief Complaint Admit Date fall August 07, 2024 6:03pm Advance Directives No Advanced Directives Records Found Advance Directive Response Recorded Date/ Time Do you have a Healthcare Power of Ap Processor? Yes August 07, 2024 6:11pm Name of Medical Power of Ap Processor Andra August 07, 2024 6:11pm Summary Purpose Family History No Family History Records Found Additional Source Comments Care Teams (unrecognized sec tion and content) Team Status: Active Member Role Status Dates Dr. Ladarius Painting DO Primary Care Provider Active Team Status: Inactive Member Role Status Dates Dr. Ladarius Painting DO Primary Care Provider Active Start: August 07, 2024 End: August 08, 2024 Dr. Bert Correa DO Referring Provider Active S tart: August 07, 2024 End: August 08, 2024 Dr. Bert Correa , DO Emergency Provider Active S tart: August 07, 2024 End: August 08, 2024 Goals (unrecognized section and content) Goals may be documented in a n alternate section (unrecognized sect ion and content) No Status Records Found INFORMATION SOURCE (unrecogn ized section and content) DATE CREATED AUTHOR 08/14/2024 [facility] FOR RECORDS PERTAINING TO PATIENTS WHO ARE OR HAVE BEEN ENROLLED IN A CHEMICAL DEPENDENCY/SUBSTANCEABUSE PROGRAM, SOME INFORMATION MAY BE OMITTED. This clinical summary was aggregated from multiple sources. Caution should be exercised in using it in the provision of clinical care. This summary normalizes information from multiple sources, and as a consequence, information in this document may materially change the coding, format and clinical context of patient data. In addition, data may be omitted in some cases. CLINICAL DECISIONS SHOULD BE BASED ON THE PRIMARY CLINICAL RECORDS. [facility]. provides no warranty or guarantee of the accuracy or completeness of information in this document.
--- OUTSIDE RECORDS SUMMARY | 2024-10-06 18:15 | XMS RPT_ITS | CCD ---
Author Organization [facility] Care Team Providers [place] Nurse Name Role Phone Dr. Ladarius Painting DO Primary Care Provider Dr. Bert Correa DO Referring Provider [phone] Dr. Bert Correa DO Emergency Provider [phone] Bert Correa Referring Unavailable Bert Correa Attending Unavailable Ladarius Painting Primary Care Unavailable Allergies Allergy Classification Reported Allergen(s) Allergy Type Date of Onset Reaction(s) Facility (1 source) Bacitracin Drug Allergy 5 [facility] Comment on above: pt has dementia (1 source) natural latex rubber Allergy to substance 5 [facility] Comment on above: pt has dementia (1 source) Neomycin Drug Allergy 5 [facility] Comment on above: pt has dementia (1 source) Polymyxin B Drug Allergy 5 [facility] Comment on above: pt has dementia (1 source) Sulfamethoxazole Drug Allergy 5 [facility] Comment on above: pt has dementia (1 source) Trimethoprim Drug Allergy 5 [facility] Comment on above: pt has dementia (1 source) Bacitracin Drug Allergy 5 [facility] Repository (1 source) natural latex rubber Drug allergy (disorder) 5 [facility] Repository (1 source) Neomycin Drug Allergy 5 [facility] Repository (1 source) Sulfamethoxazole Drug Allergy 5 [facility] Repository (1 source) Trimethoprim Drug Allergy 5 [facility] Repository (1 source) polymyxin B Drug allergy (disorder) 5 [facility] Repository Problems Problem Classification Problem Date [...] Range Facility Absolute lymphocyte countOrd ered By: [facility] on 08-07-2024 Lymphocytes Auto (Unsp spec) [#/Vol] 2.01 10*3/uL 0.83-4.51 [facility] Absolute neutrophil countOrd ered By: [facility] on 08-07-2024 Neutrophils (Bld) [#/Vol] 5.4 10*3/uL 2.0-7.7 [facility] Anion gap in Serum or Plasma Ordered By: [facility] on 08-07-2024 Anion gap [Moles/Vol] 13 mmol/L 5-15 [facility] Automated lymphocyte count a s percentage of total leukocytesOrdered By: [facility] on 08-07-2024 Lymphocytes/100 WBC Auto (Unsp spec) 22.4 % 19-41 [facility] BUN/creatinine ratioOrdered By: Bert Correa on 08-07-2024 Urea nitrogen/Creatinine [Mass ratio] 22.3 mg/mg High 10-20 [facility] Basic Metabolic Profile (BMP )on 08-07-2024 BUN/CRE 22.3 RATIO High 01-20 [facility] Comment on above: Performed By: #### L 500.2500, L100.0100 #### [facility] [address] [place], [address] ECRCL 36.45 ml/min Low 50-250 [facility] Comment on above: Performed By: #### L 500.2500, L100.0100 #### [facility] [address] [place], [address] GAP 13 Normal 5-15 [facility] Comment on above: Performed By: #### L 500.2500, L100.0100 #### [facility] [address] [place], [address] Potassium [Moles/Vol] 4.2 mmol/L Normal 3.3-5.1 [facility] Comment on above: Performed By: #### L 500.2500, L100.0100 #### [facility] [address] [place], [address] Basophil percentageOrdered B y: Bert Correa on 08-07-2024 Basophils/100 WBC (Bld) 0.3 % 0-[address] [facility] Brain/Head without Contrasto n 08-07-2024 Brain/Head without Contrast [facility] Imaging Services [address] [place] [address] Brain/Head without Contrast MR#: [id number] Acct: [id number] Name: NIECY JAUREGUI Rep #: [id number] : 1945 M 79 From: Keon molina MD PCP: Dr. Ladarius Painting, Status: REG ER Study: Brain/Head without Contrast Date of Exam: 10/25 Exam# [id number] Ordering Dr: Bert Correa DO PROCEDURE: BRAIN/HEAD [...] Bert Correa, DO; Dr. Ladarius Painting, DO Nanosystems Engineer: Signed Normal [facility] CBC W/Diff, Automatedon 05-0 Absolute Lymph 2.01 X10 3/uL Normal 0.83-4.51 [facility] Comment on above: Performed By: #### L 500.2500, L100.0100 #### [facility] [address] [place], [address] Absolute Neut 5.4 X10 3/uL Normal 2.0-7.7 [facility] Comment on above: Performed By: #### L 500.2500, L100.0100 #### [facility] [address] [place], [address] Basophils/100 WBC (Bld) 0.3 % Normal 0-[address] [facility] Comment on above: Performed By: #### L 500.2500, L100.0100 #### [facility] [address] [place], [address] Eosinophils/100 WBC (Bld) 5.5 % High 0-5 [facility] Comment on above: Performed By: #### L 500.2500, L100.0100 #### [facility] [address] [place], [address] Erythrocyte distribution width (RBC) [Ratio] 13.5 % Normal 11.6-14.6 [facility] Comment on above: Performed By: #### L 500.2500, L100.0100 #### [facility] [address] [place], [address] Hematocrit (Bld) [Volume fraction] 38.8 % Low 40-54 [facility] Comment on above: Performed By: #### L 500.2500, L100.0100 #### [facility] [address] [place], [address] Hemoglobin (Bld) [Mass/Vol] 13.1 g/dL Normal 13.0-16.5 [facility] Comment on above: Performed By: #### L 500.2500, L100.0100 #### [facility] [address] [place], [address] IG% 0.800 Normal 0.0-0.9 [facility] Comment on above: Result Comment: IG% - Immature Granulocytes (promyelocytes, myelocytes and metamyelocytes) > 1% indicates that a LEFT SHIFT is Present. Performed By: #### L 500.2500, L100.0100 #### [facility] [address] [place], [address] Lymphocytes/100 WBC (Bld) 22.4 % Normal 19-41 [facility] Comment on above: Performed By: #### L 500.2500, L100.0100 #### [facility] [address] [place], [address] MCH (RBC) [Entitic mass] 30.7 pg Normal 27.0-32.0 [facility] Comment on above: Performed By: #### L 500.2500, L100.0100 #### [facility] [address] [place], [address] MCHC (RBC) [Mass/Vol] 33.8 g/dL Normal 32-36 [facility] Comment on above: Performed By: #### L 500.2500, L100.0100 #### [facility] [address] [place], [address] MCV (RBC) [Entitic vol] 90.9 fL Normal 80-[address] [facility] Comment on above: Performed By: #### L 500.2500, L100.0100 #### [facility] [address] [place], [address] Monocytes/100 WBC (Bld) 10.8 % High 0-[address] [facility] Comment on above: Performed By: #### L 500.2500, L100.0100 #### [facility] [address] [place], [address] Neutrophils/100 WBC (Bld) 60.2 % Normal 47-70 [facility] Comment on above: Performed By: #### L 500.2500, L100.0100 #### [facility] [address] [place], [address] Nucleated RBC (Bld) [#/Vol] 0 10*3/uL Normal 0-5 [facility] Comment on above: Performed By: #### L 500.2500, L100.0100 #### [facility] [address] [place], [address] Platelet mean volume (Bld) [Entitic vol] 8.8 fL Normal 6.2-12.0 [facility] Comment on above: Performed By: #### L 500.2500, L100.0100 #### [facility] [address] [place], [address] Platelets (Bld) [#/Vol] 222 10*3/uL Normal 150-450 [facility] Comment on above: Performed By: #### L 500.2500, L100.0100 #### [facility] [address] [place], [address] RBC (Bld) [#/Vol] 4.27 10*6/uL Low 4.6-6.2 [facility] Comment on above: Performed By: #### L 500.2500, L100.0100 #### [facility] [address] [place], [address] RDW SD 44.4 fl High 35.1-43.9 [facility] Comment on above: Performed By: #### L 500.2500, L100.0100 #### [facility] [address] [place], [address] WBC (Bld) [#/Vol] 9.0 10*3/uL Normal 4.4-11.0 [facility] Comment on above: Performed By: #### L 500.2500, L100.0100 #### [facility] [address] [place], [address] CTA Abd/Pelvis W/WO Contrast on 08-07-2024 CTA Abd/Pelvis W/WO Contrast [facility] Imaging Services [address] [facility] [place] [address] CTA Abd/Pelvis W/WO Contrast MR#: [id number] Acct: [id number] Name: NIECY JAUREGUI Rep #: [id number] : 1945 M 79 From: Trav Kirkland MD PCP: Dr. Ladarius Painting, DO Status: [facility] Study: CTA Abd/Pelvis W/WO Contrast Date of Exam: 10/25 Exam# [id number] Ordering Dr: Bert Correa DO PROCEDURE: CTA [...] MGycm COMPARISON: NO RELEVANT PRIOR FINDINGS: Aorta: [id number] atherosclerotic calcific disease. Fusiform aneurysmal dilatation of [...] Bert Correa DO; Dr. Ladarius Painting DO Nanosystems Engineer: Signed Normal [facility] Carbon dioxide, total [Moles /volume] in Central venous bloodOrdered By: Bert Correa on 08-07-2024 CO2 [Moles/Vol] 19.7 mmol/L Low 21.0-32.0 [facility] Comment on above: Performed By: #### L 500.2500, L100.0100 #### [facility] [address] [facility] [place], [place], [address] Chest without Contraston Chest without Contrast [facility] Imaging Services [address] [place] [address] Chest without Contrast MR#: [id number] Acct: [id number] Name: NIECY JAUREGUI Rep #: [id number] : 1945 M 79 From: Keon molina MD PCP: Dr. Ladarius Painting DO Status: REG ER Study: Chest without Contrast Date of Exam: 08/07/24 Exam# [id number] Ordering Dr: Bert Correa DO PROCEDURE: CHEST [...] right upper lobe pulmonary nodule. Reading Location: [facility] CC: Dr. Bert Correa DO; Dr. Ladarius Painting DO Nanosystems Engineer: Signed Normal [facility] Chloride assayOrdered By: Daysi Correa on 08-07-2024 Chloride [Moles/Vol] 109 mmol/L High 98-108 [facility] Comment on above: Performed By: #### L 500.2500, L100.0100 #### [facility] [address] [facility], [address] Emergency Department Summary on 08-07-2024 Emergency Department Summary [facility] Medical Records Department [address] [place] [address] Emergency Department Summary 08/07/24 MR#: [id number] Acct: [id number] Name: NIECY JAUREGUI Rep #: [id number] : 1945 79 From: Bert Correa DO PCP: Dr. Ladarius Painting, Status:REG ER Location: ED HPI HPI - Fall History of Present Illness Chief Complaint: Fall Detail of Chief Complaint: Fall Informant: patient Narrative Narrative: Patient presents to the emergency department after a fall that was unwitnessed at memory care unit at [place]. Patient very poor historian due to history of dementia. He has history of chronic back pain. Complains of some discomfort of pain in his right upper back. Patient not anticoagulated [facility] Medical History (Updated 08/07/24 @ 21:[address] Bert Correa DO) Barretts esophagus GERD (gastroesophageal reflux disease) Embolism and thrombosis HTN (hypertension) Alzheimer disease Dementia Hyperlipidemia Allergy/AdvReac Type Severity Reaction Status Date / Time bacitracin (From Neosporin Allergy Unknown unknown Verified 08/07/24 18:09 ([id number])) Latex, Natural Rubber Allergy Unknown unknown Verified 08/07/24 18:09 neomycin (From Neosporin Allergy Unknown unknown Verified 08/07/24 18:09 ([id number]-[id number])) polymyxin B (From Neosporin Allergy Unknown unknown Verified 08/07/24 18:09 ([id number]-rxd-[id number])) sulfamethoxazole (From Allergy Unknown unknown Verified 08/07/24 [...] tenderness Stephani (more content not included)... Normal [facility] Eosinophil percentageOrdered By: Bert Correa on 08-07-2024 Eosinophils/100 WBC (Bld) 5.5 % High 0-5 [facility] Erythrocyte distribution wid th ratioOrdered By: Bert Correa on 08-07-2024 Erythrocyte distribution width (RBC) [Ratio] 13.5 % 11.6-14.6 [facility] Erythrocyte distribution wid th standard deviationOrdered By: Bert Correa on 08-07-2024 Erythrocyte distribution width (RBC) [Ratio] 44.4 fl High 35.1-43.9 [facility] Glomerular filtration rate ( GFR) estimation/1.73 sq m using serum, plasma, or whole bOrdered By: Bert Correa on 08-07-2024 GFR/1.73 sq M.predicted among non-blacks MDRD (S/P/Bld) [Vol rate/Area] 39 mL/min/{1.73_m2} Low >60 [facility] Comment on above: mL/min/1.73m2 CKD-EP I Creatinine Equation (2020) Result Comment: mL/m in/1.73m2 CKD-EPI Creatinine Equation (2020) Performed By: #### L 500.2500, L100.0100 #### [facility] [address] [facility], [address] Hematocrit Auto (Bld) [Volum e fraction]Ordered By: Bert Correa on 08-07-2024 Hematocrit (Bld) [Volume fraction] 38.8 % Low 40-54 [facility] Hemoglobin measurementOrdere d By: Bert Correa on 08-07-2024 Hemoglobin (Bld) [Mass/Vol] 13.1 g/dL 13.0-16.5 [facility] Immature granulocytes/100 WB C Auto (Bld)Ordered By: [place] Madeline on 08-07-2024 Immature granulocytes/100 WBC (Bld) 0.800 % 0.0-0.9 [facility] Comment on above: IG% - Immature Granu locytes (promyelocytes, myelocytes and metamyelocytes) > 1% indicates that a LEFT SHIFT is Present. Lumbar Spine 2 or 3 Viewson 08-07-2024 Lumbar Spine 2 or 3 Views [facility] Imaging Services [address] [place] [address] Lumbar Spine 2 or 3 Views MR#: [id number] Acct: [id number] Name: NIECY JAUREGUI Rep #: [id number] : 1945 M 79 From: Keon molina MD PCP: Dr. Ladarius Painting DO Status: REG ER Study: Lumbar Spine 2 or 3 Views Date of Exam: Exam# [id number] Ordering Dr: Bert Correa DO PROCEDURE: LUMBAR [...] Views IMPRESSION: No acute fracture or dislocation. Hjcdppfn-lq-akrsek degenerative changes as described above. 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 Recommend CT of the abdomen and pelvis for further evaluation. Reading Location: [facility] CC: Dr. Bert Correa DO; Dr. Ladarius Painting DO Nanosystems Engineer: Signed Normal [facility] MCV (mean corpuscular volume ) determinationOrdered By: Bert Correa on 08-07-2024 MCV (RBC) [Entitic vol] 90.9 fL 80-[address] [facility] Mean corpuscular hemoglobin (MCH) determinationOrdered By: Bert Correa on 08-07-2024 MCH (RBC) [Entitic mass] 30.7 pg 27.0-32.0 [facility] Mean corpuscular hemoglobin concentration (MCHC) determinationOrdered By: Bert Correa on 08-07-2024 MCHC (RBC) [Mass/Vol] 33.8 g/dL 32-36 [facility] Mean platelet volume determi nationOrdered By: Bert Correa on 08-07-2024 Platelet mean volume (Bld) [Entitic vol] 8.8 fL 6.2-12.0 [facility] Monocyte percentageOrdered B y: Bert Correa on 08-07-2024 Monocytes/100 WBC (Bld) 10.8 % High 0-[address] [facility] Neutrophil percentageOrdered By: Bert Correa on 08-07-2024 Neutrophils/100 WBC (Bld) 60.2 % 47-70 [facility] Nucleated red blood cell per centageOrdered By: Bert Correa on 08-07-2024 Nucleated RBC/100 WBC (Bld) [Ratio] 0 % 0-5 [facility] Pelvis 1 or 2 Viewson 2024 Pelvis 1 or [address] [facility] Imaging Services [address] [place], [place] [address] Pelvis 1 or 2 Views MR#: [id number] Acct: [id number] Name: NIECY JAUREGUI Rep #: [id number] : 1945 M 79 From: Keon molina MD PCP: Dr. Ladarius Painting, Status: [facility] ER Study: Pelvis 1 or 2 Views Date of Exam: 08/07/24 Exam# [id number] Ordering Dr: Bert Correa DO PROCEDURE: LUMBAR [...] Views IMPRESSION: No acute fracture or dislocation. Acojxsjx-so-tzastg degenerative changes as described above. 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 Recommend CT of the abdomen and pelvis for further evaluation. Reading Location: [facility] CC: Dr. Bert Correa, DO; Dr. Ladarius Painting, DO Nanosystems Engineer: Signed Normal [facility] Platelet countOrdered By: Daysi Correa on 08-07-2024 Platelets (Bld) [#/Vol] 222 10*3/uL 150-450 [facility] Potassium measurement (mass/ volume)Ordered By: Bert Correa on 08-07-2024 Potassium (Unsp spec) [Mass/Vol] 4.2 mmol/L 3.3-5.1 [facility] RBC Auto (Bld) [#/Vol]Ordere d By: Bert Correa on 08-07-2024 RBC (Bld) [#/Vol] 4.27 10*6/uL Low 4.6-6.2 [facility] Serum creatinine measurement (mass/volume)Ordered By: Bert Correa on 08-07-2024 Creatinine [Mass/Vol] 1.75 mg/dL High 0.70-1.20 [facility] Comment on above: Performed By: #### L 500.2500, L100.0100 #### [facility] [address] [place], [address] Serum glucose measurement (m ass/volume)Ordered By: Bert Correa on 08-07-2024 Glucose [Mass/Vol] 118 mg/dL High 70-99 [facility] Comment on above: Performed By: #### L 500.2500, L100.0100 #### [facility] [address] [place], [address] Serum or plasma calcium zayra urement (mass/volume)Ordered By: Bert Correa on 08-07-2024 Calcium [Mass/Vol] 9.4 mg/dL Normal 7.6-11.0 [facility] Comment on above: Performed By: #### L 500.2500, L100.0100 #### [facility] [address] [place], [address] Serum or plasma urea nitroge n measurement (mass/volume)Ordered By: Bert Correa on 08-07-2024 Urea nitrogen [Mass/Vol] 39 mg/dL High 4-19 [facility] Comment on above: Performed By: #### L 500.2500, L100.0100 #### [facility] [address] [place], [address] Sodium levelOrdered By: Lidia Correa on 08-07-2024 Sodium [Moles/Vol] 142 mmol/L Normal 133-145 [facility] Comment on above: Performed By: #### L 500.2500, L100.0100 #### [facility] [address] [facility] [place], [address] Spine Cervical without Contr ason 08-07-2024 Spine Cervical without Contras [facility] Imaging Services [address] [place] [address] Spine Cervical without Contras MR#: [id number] Acct: [id number] Name: NIECY JAUREGUI Rep #: [id number] : 1945 M 79 From: Keon molina MD PCP: Dr. Ladarius Painting, Status: REG ER Study: Spine Cervical without Contras Date of Exam: 0 08/07/24 Exam# [id number] Ordering Dr: Bert Correa DO PROCEDURE: SPINE [...] changes most prominent at C3-C4. [facility] CC: Dr. Bert Correa DO; Dr. Ladarius Painting DO Nanosystems Engineer: Signed Normal [facility] White blood cell (WBC) count Ordered By: Bert Correa on 08-07-2024 WBC (Bld) [#/Vol] 9.0 10*3/uL 4.4-11.0 [facility] Vital Signs Date Time Vital Sign Value Performing Clinician Faci lity 08-08-2024 04:00-0400 Heart rate 81 /min Dr. Ladarius Painting DO Work Phone: [facility] 08-08-2024 04:00-0400 Respiratory rate 16 /min Dr. Ladarius Painting DO Work Phone: [facility] 08-08-2024 04:00-0400 SaO2% (BldA) [Mass fraction] 95 % Dr. aLdarius Painting DO Work Phone: [facility] 08-08-2024 02:04-0400 Diastolic blood pressure 89 mm[Hg] Dr. Ladarius Painting DO Work Phone: [facility] 08-08-2024 02:04-0400 Systolic blood pressure 125 mm[Hg] Dr. Ladarius Painting DO Work Phone: [facility] 08-07-2024 21:41-0400 Body temperature 98.8 [degF] Dr. Ladarius Painting DO Work Phone: [facility] 08-07-2024 18:04-0400 Body height 180.[address] Ladarius Painting DO Work Phone: [facility] 08-07-2024 18:04-0400 Body mass index (BMI) [Ratio] 24.5 kg/m2 Dr. Ladarius Painting DO Work Phone: [facility] 08-07-2024 18:04-0400 Body weight [address] Ladarius Painting DO Work Phone: [facility] Encounters Encounter Date Encounter Type Care [...] Date Care Activity Detail Author Start: 08-07-2024 [facility] Patient Education Delirium and D ementia ED Fall Prevention ED AAA Stable [facility] Work Phone: Patient referral [facility] Work Phone: Payers Date Payer Category Payer Self-pay Medicare MEDICARE PART A B [id number] Unknown [id number] Social History Date Type Detail Facility Start: 08-07-2024 Tobacco smoking status NHIS Tobacco smoking consumption unknown (finding) [facility] Start: 1945 Sex Assigned At Male W [facility] Discharge summary 08-08-2024 Note Date & Type Note Facility 08-08-2024 Discharge summary Note Date/Time August 07, 2024 11:15p m [facility] Medical Records Department [address] [place] [address] Emergency Department Summary 08/07/24 MR#: [id number] Acct: [id number] Name: NIECY JAUREGUI Rep #:[id number] : 1945 79 From: Bert Correa DO PCP: Dr. Ladarius Painting, Status:REG ER Location: ED HPI HPI - Fall History of Present Illness Chief Complaint: Fall Detail of Chief Complaint: Fall Informant: patient Narrative Narrative: Patient presents to the emergency department after a fall that was unwitnessed at memory care unit at [place]. Patient very poor historian due to history ofdementia. He has history of chronic back pain. Complains of some discomfort ofpain in his right upper back. Patient not anticoagulated [facility] Medical History (Updated 08/07/24 @ 21:[address] Bert Correa DO) Barretts esophagus GERD (gastroesophageal reflux disease) Embolism and thrombosis HTN (hypertension) Alzheimer disease Dementia Hyperlipidemia Allergy/AdvReac Type Severity Reaction Status Date / Time bacitracin (From Neosporin Allergy Unknown unknown Verified 08/07/24 18:09 ([id number])) Latex, Natural Rubber Allergy Unknown unknown Verified 08/07/24 18:09 neomycin (From Neosporin Allergy Unknown unknown Verified 08/07/24 18:09 (aat-[id number])) polymyxin B (From Neosporin Allergy Unknown unknown Verified 08/07/24 18:09 (oru-ius-uztyu)) sulfamethoxazole (From Allergy Unknown unknown Verified 08/07/24 [...] point we will discharge patient back to longterm will refer to vascular surgery for follow-up [...] % (Auto) 60.2 Lymph % (Auto) 22.4 [place] % (Auto) 10.8 H Eos % (Auto) [...] changes most prominent at C3-C4. Reading [email or web address] 08/07/24 18:22 IMPRESSION: No acute findings in the thorax. Moderate upper lobe centrilobular emphysema. 4 mm indeterminate right upper lobe pulmonary nodule. Reading Location: [email or web address] Pelvis X-Ray 08/07/24 18:22 IMPRESSION: No acute fracture or dislocation. Sungfogb-lt-wcjbtv degenerative changes as described above. 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 Recommend CT of the abdomen and pelvis for further evaluation. Reading Location: [email or web address] Brain CT 08/07/24 18:30 IMPRESSION: No acute intracranial abnormality. Chronic microvascular ischemia and involutional changes. Reading Location[facility] Lumbar Spine X-Ray 08/07/24 18:40 IMPRESSION: No acute fracture or dislocation. Qedzthjg-sg-qfaohi degenerative changes as described above. Concerning for [...] Care Provider] - 3-5 Days Print Language: Persian Disposition Disposition: Home, Self Care What to do if you have Problems For any increased pain, shortness of breath, bleeding, nausea or vomiting, chestpain, or any unexpected problems, contact your Primary Care Provider. Call [facility] ([phone]) or report to the closest Emergency Room. Call 911 if necessary. 08/07/242314 <Electronically signed by Bert Correa DO> Cosigner Signature (if applicable): CC: Dr. Ladarius Painting DO ~ Signed [facility] Work Phone: Discharge summary 08-07-2024 Note Date & Type Note Facility 08-07-[address] [facility] Radiology Diagnostic study note 08-07-2024 Note Date & Type Note Facility 08-07-2024 Radiology Diagnostic study note [facility] Imaging Services [address] [place], [place] [id number] CTA Abd/Pelvis W/WO Contrast MR#: [id number] Acct: [id number] Name: NIECY JAUREGUI Rep #: [id number] : 1945 M 79 From: Aura Kirkland MD PCP: Dr. Ladarius Painting, DO Status: REG ER Study:CTA Abd/Pelvis W/WO Contrast Date of Ex am: 08/07/24 Exam# [id number] Ordering Dr: Daysi Correa DO PROCEDURE: CTA [...] MGycm COMPARISON: NO RELEVANT PRIOR FINDINGS: Aorta: Iuud-jh-srmtbtsf atherosclerotic calcific disease. Fusiform aneurysmal dilatation of [...] artery calcifications. Reading Location: [facility] CC: Dr. Betr Correa DO; Dr. Ladarius Painting DO ~ Nanosystems Engineer: Signed [facility] Radiology Diagnostic study note 08-07-2024 Note Date & Type Note Facility 08-07-2024 Radiology Diagnostic study note [facility] Imaging Services [address] [facility] [place], [place] [id number] Spine Cervical without Contras MR#: [id number] Acct: [id number] Name: NIECY JAUREGUI Rep #: [id number] : 1945 M 79 From: Donna Us MD PCP: Dr. Ladarius Painting DO Status: REG ER Study:Spine Cervical without Contras Date of Exam: 08/07/24 Exam# [id number] Ordering Dr: Daysi Correa DO PROCEDURE: SPINE [...] changes most prominent at C3-C4. Reading Location: [facility] CC: Dr. Bert Correa DO; Dr. Ladarius Painting DO ~ Nanosystems Engineer: Signed [facility] Radiology Diagnostic study note 08-07-2024 Note Date & Type Note Facility 08-07-2024 Radiology Diagnostic study note [facility] Imaging Services [address] [place] [address] Chest without Contrast MR#: [id number] Acct: [id number] Name: NIECY JAUREGUI Rep #: [id number] : 1945 M 79 From: Donna Us MD PCP: Dr. Ladarius Painting DO Status: REG ER Study:Chest without Contrast Date of Exam: 08/07/24 Exam# [id number] Ordering Dr: Daysi Correa DO PROCEDURE: CHEST [...] Correa DO; Dr. Ladarius Painting DO ~ Nanosystems Engineer: Signed [facility] Radiology Diagnostic study note 08-07-2024 Note Date & Type Note Facility 08-07-2024 Radiology Diagnostic study note [facility] Imaging Services [address] [place], [place] [address] Lumbar Spine 2 or 3 Views MR#: [id number] Acct: [id number] Name: NIECY JAUREGUI Rep #: [id number] : 1945 M 79 From: Donna Us MD PCP: Dr. Ladarius Painting DO Status: REG ER Study:Lumbar Spine 2 or 3 Views Date of Exam: 08/07/24 Exam# [id number] Ordering Dr: Daysi Correa DO PROCEDURE: LUMBAR [...] Views IMPRESSION: No acute fracture or dislocation. Kpifrmen-gw-gggpqj degenerative changes as described above. 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 Recommend CT of the abdomen and pelvis for further evaluation. Reading Location: [facility] CC: Dr. Bert Correa DO; Dr. Ladarius Painting DO ~ Nanosystems Engineer: Signed [facility] Radiology Diagnostic study note 08-07-2024 Note Date & Type Note Facility 08-07-2024 Radiology Diagnostic study note [facility] Imaging Services [address] [place] [address] Pelvis 1 or 2 Views MR#: [id number] Acct: [id number] Name: NIECY JAUREGUI Rep #: [id number] : 1945 M 79 From: Donna Us MD PCP: Dr. Ladarius Painting DO Status: REG ER Study:Pelvis 1 or 2 Views Date of Exam: 08/07/24 Exam# [id number] Ordering Dr: Daysi Correa DO PROCEDURE: LUMBAR [...] Views IMPRESSION: No acute fracture or dislocation. Koefsvzx-or-iovlol degenerative changes as described above. 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 Recommend CT of the abdomen and pelvis for further evaluation. Reading Location: [facility] CC: Dr. Bert Correa DO; Dr. Ladarius Painting DO ~ Nanosystems Engineer: Signed [facility] Radiology Diagnostic study note 08-07-2024 Note Date & Type Note Facility 08-07-2024 Radiology Diagnostic study note [facility] Imaging Services [address] [place], [place] [address] Brain/Head without Contrast MR#: [id number] Acct: [id number] Name: NIECY JAUREGUI Rep #: [id number] : 1945 M 79 From: Donna Us MD PCP: Dr. Ladarius Painting DO Status: REG ER Study:Brain/Head without Contrast Date of Exa m: 08/07/24 Exam# [id number] Ordering Dr: Daysi Correa DO PROCEDURE: BRAIN/HEAD [...] microvascular ischemia and involutional changes. [facility] CC: Dr. Bert Correa DO; Dr. Ladarius Painting DO ~ Nanosystems Engineer: Signed [facility] Evaluation note Note Date & Type Note Facility Evaluation note No assessment information availa ble [facility] Work Phone: Reason for referral (narrative) Note Date & Type Note Facility Reason for referral (narrative) No reason for referral information available [facility] Work Phone: Chief Complaint and Reason for Visit Chief Complaint Admit Date fall August 07, 2024 6:03pm Advance Directives No Advanced Directives Records Found Advance Directive Response Recorded Date/ Time Do you have a Healthcare Power of Improvement Engineer? Yes August 07, 2024 6:11pm Name of Medical Power of Improvement Engineer Andra August 07, 2024 6:11pm Summary Purpose [...] section and content) DATE CREATED AUTHOR 08/14/2024 [facility] FOR RECORDS PERTAINING TO PATIENTS WHO ARE [...] BE BASED ON THE PRIMARY CLINICAL RECORDS. [employer] [facility]. provides no warranty or guarantee of the accuracy or completeness of information in this document.
[2024-10-06 18:28] LABS: Anion Gap 17 (5-15); BUN 35 mg/dL (4-19); BUN/Creat Ratio 19.9 RATIO (10-20); Calcium,Total 9.4 mg/dL (7.6-11.0); Carbon Dioxide 17.2 mmol/L (21.0-32.0); Chloride 107 mmol/L (98-108); Estimated Creatinine Clearance 36.32 ml/min (50-250); Glucose 198 mg/dL (70-99); Potassium 3.7 mmol/L (3.3-5.1)
[2024-10-06] MEDS: 0.9% Normal Saline (1000mL) 1,000 ML 1000 ML IV (18:30)
[2024-10-06 18:57] LABS: Troponin T High Sensitivity 35 ng/L (<=22)
--- NOTE | 2024-10-06 19:11 | PCA ---
CALLED HOSPICE @1426 FOR THIS ROOM. THEY WILL SEND A NURSE OUT SOON .
--- NOTE | 2024-10-06 19:11 | PCA ---
CALLED HOSPICE @6848 FOR THIS ROOM. THEY WILL SEND A NURSE OUT SOON .
--- NOTE | 2024-10-06 21:03 | PCA ---
CALLED FOR [facility] @ 2100 ETA 30 MINS FOR PHYSICIANS
--- NOTE | 2024-10-06 21:03 | PCA ---
CALLED FOR [facility] @ 2100 ETA 30 MINS FOR PHYSICIANS
--- NOTE | 2024-10-06 21:25 | ED.RN ---
THIS NURSE CALLED REPORT TO INPATIENT HOSPICE CARE, KAY PATTEN PRESENT FOR DECISION WITH HOSPICE TO ADMIT PT IN THEIR INPATIENT UNIT.
--- NOTE | 2024-10-06 21:25 | ED.RN ---
THIS NURSE CALLED REPORT TO INPATIENT HOSPICE CARE, KAY PATTEN PRESENT FOR DECISION WITH HOSPICE TO ADMIT PT IN THEIR INPATIENT UNIT.
[2024-10-06 21:53] LABS: Reflex Lactate? Y
== END 2024-10-06 21:54 | disposition hospice, home (50) ==
PROVIDERS: Emergency Provider Emergency Medicine; Visit Provider Emergency Medicine
DX: T17.928A Food in respiratory tract, part unspecified causing other injury, initial encounter (principal); J96.21 Acute and chronic respiratory failure with hypoxia; J96.22 Acute and chronic respiratory failure with hypercapnia; G30.9 Alzheimer's disease, unspecified; F02.80 Dementia in other diseases classified elsewhere, unspecified severity, without behavioral disturbance, psychotic disturbance, mood disturbance, and anxiety; I48.91 Unspecified atrial fibrillation; E11.22 Type 2 diabetes mellitus with diabetic chronic kidney disease; N18.30 Chronic kidney disease, stage 3 unspecified; D72.829 Elevated white blood cell count, unspecified; I12.9 Hypertensive chronic kidney disease with stage 1 through stage 4 chronic kidney disease, or unspecified chronic kidney disease; D53.9 Nutritional anemia, unspecified; E87.20 Acidosis, unspecified; W44.F3XA Food entering into or through a natural orifice, initial encounter
CPT/HCPCS: 36600; 71045; 80048; 82803; 83605; 84484; 85025; 93005; 96361; 96374; 96376; 99252; 99285; A4216; G0463; J0330